=== PATIENT | male | born 1950 | race Caucasian/White ===

== ENCOUNTER 2020-08-10 09:01 | Outpatient (REF) | payer MEDICARE, OTHER, SELFPAY ==
--- NOTE | 2020-08-10 08:57 | CT_ITS ---
EXAMINATION: CT SINUS WITHOUT CONTRAST CLINICAL INFORMATION: Anosmia. COMPARISON: No relevant prior imaging. TECHNIQUE: [employer]ator images were obtained. A CT acquisition of the sinuses was performed without contrast. Data was reformatted into multiplanar images at the acquisition workstation. This CT examination was performed using dose optimization techniques as appropriate, variously including the following: *Automated exposure control *Adjustment of mA and/or kV according to patient size (this includes techniques or standardized protocols for targeted exams where dose is matched to indication/reason for exam; i.e. extremities or head) *Use of iterative reconstruction technique DLP: 101 mGy-cm FINDINGS: Maxillary sinuses are well aerated and the primary maxillary sinus ostia are patent. Uncinate processes are intact. No ostiomeatal unit dysfunction. Frontal sinuses are well-aerated and the frontal recesses are patent. The ethmoid air cells and sphenoid sinus are well aerated. Seen on sinus ostia are patent. No nasal septal deviation. Globes and extraocular muscles are symmetric. No abnormal retrobulbar mass or collection. Lamina papyracea and orbital floors are intact. Orbital apices are unremarkable. Limited visualization of intracranial compartment reveals no abnormal finding. Specifically no midline shift or hydrocephalus. No mastoid middle ear effusion. Temporal mandibular joints are symmetric. IMPRESSION: Normal maxillofacial CT scan. Specifically no active paranasal sinus disease. All of the paranasal sinus drainage pathways are patent. No nasal septal deviation.
== END 2020-08-10 09:02 | disposition home or self-care (01) ==
LOC: HO.CT 09:01
PROVIDERS: PCP Internal Medicine; Visit Provider Internal Medicine
DX: R43.0 Anosmia (principal)
CPT/HCPCS: 70486

== ENCOUNTER 2020-08-26 12:03 | Outpatient (REF) | payer MEDICARE, OTHER, SELFPAY ==
--- NOTE | 2020-08-26 12:11 | XR_ITS ---
EXAMINATION: XR CERVICAL SPINE CLINICAL INFORMATION: Neck pain COMPARISON: None TECHNIQUE: 3 views of the cervical spine were obtained. FINDINGS: Bone alignment is normal. No fracture or dislocation is seen. There is soft tissue ossification or calcification adjacent to the C7 spinous process, question related to old trauma. There is degenerative spondylosis at C5-C6 and C6-C7. There is disc space narrowing at C6-C7. Prevertebral soft tissues are normal. XR/XR cervical spine 3V IMPRESSION: Degenerative changes at C5-C6 and C6-C7.
== END 2020-08-26 12:04 | disposition home or self-care (01) ==
LOC: HO.XRAY 12:03
PROVIDERS: PCP Internal Medicine; Visit Provider Chiropractor
DX: M54.2 Cervicalgia (principal)
CPT/HCPCS: 72040

== ENCOUNTER 2020-12-27 11:58 | Outpatient (REF) | payer MEDICARE, OTHER, SELFPAY ==
[2020-12-27 13:14] LABS: Anion Gap 11 (12-20); Blood Urea Nitrogen 23 mg/dL (9-16); Calcium 9.7 mg/dL (8.4-10.2); Carbon Dioxide 30 mmol/L (22-29); Chloride 103 mmol/L (96-108); Estimated Glomerular Filt Rate > 60; Glucose Random 96 mg/dL (60-115); Potassium 4.6 mmol/L (3.3-5.1); Sodium 139 mmol/L (135-145)
== END 2020-12-27 11:59 | disposition home or self-care (01) ==
LOC: HO.LAB 11:58
PROVIDERS: PCP Internal Medicine; Visit Provider Internal Medicine
DX: Z13.9 Encounter for screening, unspecified (principal)
CPT/HCPCS: 36415; 80048

== ENCOUNTER 2020-12-30 10:30 | Outpatient (REF) | payer MEDICARE, OTHER, SELFPAY ==
--- NOTE | ~2020-12-30 | CT_ITS ---
EXAMINATION: CT CHEST WITH CONTRAST CLINICAL INFORMATION: Family history of thoracic aortic aneurysm COMPARISON: Previous chest CT scans most recent October 2018 TECHNIQUE: Multidetector volumetric CT imaging of the chest was obtained after the administration of 65 mL of Omnipaque 350 intravenous contrast without immediate adverse reactions. Axial MIP volume rendering provided. Sagittal and coronal reformatted images were obtained. This CT examination was performed using dose optimization techniques as appropriate, variously including the following: *Automated exposure control *Adjustment of mA and/or kV according to patient size (this includes techniques or standardized protocols for targeted exams where dose is matched to indication/reason for exam; i.e. extremities or head) *Use of iterative reconstruction technique DLP: 149 mGy-cm FINDINGS: LUNGS: There is linear scarring or subsegmental atelectasis at the left lung base. The lungs are otherwise clear. MEDIASTINUM: The thoracic aorta is normal in caliber. No aneurysm is seen. The ascending thoracic aorta measures 3.7 cm, aortic arch 2.5 cm and descending thoracic aorta 2.3 cm in diameter. The distal descending thoracic aorta is slightly tortuous. The great vessel origins are patent and normal in caliber. The thyroid gland is normal. There are no enlarged hilar or mediastinal lymph nodes. The heart does not appear enlarged. There is no pericardial effusion. The esophagus is unremarkable. PLEURA: There is no pleural effusion. No pleural mass or thickening. AXILLA: No lymphadenopathy. UPPER ABDOMEN: Unremarkable OSSEOUS STRUCTURES: There are mild degenerative changes of the spine. CT/CT chest w con IMPRESSION: Normal caliber thoracic aorta. No aneurysm is seen.
--- NOTE | ~2020-12-30 | XR_ITS ---
EXAMINATION: XR STERNOCLAVICULAR JOINTS CLINICAL INFORMATION: Pain. COMPARISON: None TECHNIQUE: AP and oblique views of the sternoclavicular joints. FINDINGS: Alignment of the sternoclavicular joints is normal and symmetric. The clavicle is intact. No fracture. Bones and soft tissues are normal. XR/XR sternoclavicular joint BI IMPRESSION: Normal sternoclavicular joints.
[2020-12-30] MEDS: iohexoL 350 MG/ML 75 ML INFUS..BTL IV (10:58)
== END 2020-12-30 10:31 | disposition home or self-care (01) ==
LOC: HO.CT 10:30
PROVIDERS: PCP Internal Medicine; Visit Provider Internal Medicine
DX: R07.89 Other chest pain (principal); Z82.49 Family history of ischemic heart disease and other diseases of the circulatory system
CPT/HCPCS: 71130; 71260; Q9967

== ENCOUNTER 2021-09-06 10:01 | Outpatient (REF) | payer MEDICARE, OTHER, SELFPAY ==
[2021-09-07 08:42] LABS: Lyme Blot 2.17 index
[2021-09-07 11:42] LABS: Lyme Abs Screen POSITIVE
[2021-09-08 13:50] LABS: 18 KD (IgG) Band NON-REACTIVE; 23 KD (IgG) Band NON-REACTIVE; 23 KD (IgM) Band NON-REACTIVE; 28 KD (IgG) Band NON-REACTIVE; 30 KD (IgG) Band NON-REACTIVE; 39 KD (IgM) Band NON-REACTIVE; 41 KD (IgM) Band NON-REACTIVE; 45 KD (IgG) Band NON-REACTIVE; 58 KD (IgG) Band NON-REACTIVE; 66 KD (IgG) Band NON-REACTIVE; 93 KD (IgG) Band NON-REACTIVE; Lyme IgG Blot Interp NEGATIVE (NEGATIVE); Lyme IgM Blot Interp NEGATIVE (NEGATIVE)
== END 2021-09-06 10:02 | disposition home or self-care (01) ==
LOC: HO.MANLDS 10:01
PROVIDERS: PCP Internal Medicine; Visit Provider Internal Medicine
DX: T14.8XXA Other injury of unspecified body region, initial encounter (principal); W57.XXXA Bitten or stung by nonvenomous insect and other nonvenomous arthropods, initial encounter
CPT/HCPCS: 36415; 86617; 86618

== ENCOUNTER 2022-01-24 09:29 | Outpatient (REF) | payer MEDICARE, OTHER, SELFPAY ==
[2022-01-24 11:08] LABS: Hematocrit 44.4 % (42.0-52.0); Mean Corpuscular HGB Conc 33.8 g/dl (31.0-36.0); Mean Corpuscular Hemoglobin 31.2 pg (27.0-33.0); Mean Corpuscular Volume 92.3 fL (80.0-98.0); Mean Platelet Volume 9.9 fL (9.4-12.4); Platelet Count 209 X10*3/uL (160-400); Red Blood Count 4.81 X10*6/uL (4.60-5.80); Red Cell Distribution Width 13.1 % (11.0-16.0); White Blood Count 5.8 X10*3/uL (4.8-10.8)
[2022-01-24 11:22] LABS: Alanine Aminotransferase 27 U/L (0-40); Alkaline Phosphatase 63 U/L (39-117); Anion Gap 8 (12-20); Aspartate Amino Transferase 28 U/L (5-37); Bilirubin Total 0.4 mg/dL (0.0-1.0); Blood Urea Nitrogen 24 mg/dL (9-16); Calcium 9.3 mg/dL (8.4-10.2); Carbon Dioxide 30 mmol/L (22-29); Chloride 102 mmol/L (96-108); Cholesterol 193 mg/dL; Estimated Glomerular Filt Rate > 60; Glucose Fasting 101 mg/dL (60-99); HDL Cholesterol 54 mg/dL; LDL Cholesterol Calculated 126 mg/dl; Potassium 4.2 mmol/L (3.3-5.1); Sodium 136 mmol/L (135-145); Total Protein 6.4 g/dL (6.5-8.0); Triglycerides 65 mg/dL
[2022-01-24 11:45] LABS: Prostate Specific Antigen 1.87 ng/mL (<0.05-4.0)
== END 2022-01-24 09:30 | disposition home or self-care (01) ==
LOC: HO.MANLDS 09:29
PROVIDERS: PCP Internal Medicine; Visit Provider Internal Medicine
DX: Z12.5 Encounter for screening for malignant neoplasm of prostate (principal); E78.5 Hyperlipidemia, unspecified
CPT/HCPCS: 36415; 80053; 80061; 84153; 85027

== ENCOUNTER 2022-01-25 10:53 | Outpatient (REF) | payer MEDICARE, OTHER, SELFPAY ==
--- NOTE | ~2022-01-25 | XR_ITS ---
EXAMINATION: XR CHEST CLINICAL INFORMATION: Chronic cough COMPARISON: CT performed 12/30/2020 TECHNIQUE: 2 views of the chest were obtained. FINDINGS: The lungs are well expanded. There is no focal consolidation, edema, or effusion. No pneumothorax. The cardiomediastinal silhouette is within normal limits. No acute osseous abnormality. XR/XR chest 2V IMPRESSION: Clear lungs.
== END 2022-01-25 10:54 | disposition home or self-care (01) ==
LOC: HO.XRAY 10:53
PROVIDERS: PCP Internal Medicine; Visit Provider Internal Medicine
DX: R05.3 Chronic cough (principal)
CPT/HCPCS: 71046

== ENCOUNTER 2023-02-20 09:43 | Outpatient (REF) | payer MEDICARE, OTHER, SELFPAY ==
[2023-02-20 11:14] LABS: Prostate Specific Antigen 1.68 ng/mL (<0.05-4.0)
== END 2023-02-20 09:44 | disposition home or self-care (01) ==
LOC: HO.LAB 09:43
PROVIDERS: PCP Internal Medicine; Visit Provider Physician Assistant
DX: N40.1 Benign prostatic hyperplasia with lower urinary tract symptoms (principal); Z12.5 Encounter for screening for malignant neoplasm of prostate
CPT/HCPCS: 36415; 84153

== ENCOUNTER 2023-04-05 10:00 | Outpatient (REF) | payer MEDICARE, OTHER, SELFPAY | END 2023-04-05 10:01 | disposition home or self-care (01) | LOC: HO.MANLDS 10:00 | PROVIDERS: Visit Provider Physician Assistant | DX: T14.8XXA Other injury of unspecified body region, initial encounter (principal); W57.XXXA Bitten or stung by nonvenomous insect and other nonvenomous arthropods, initial encounter; Y93.9 Activity, unspecified; Y92.9 Unspecified place or not applicable; Y99.9 Unspecified external cause status; Z20.2 Contact with and (suspected) exposure to infections with a predominantly sexual mode of transmission | CPT/HCPCS: 36415; 86617; 86618; 86666; 86753; 87798; 87801 ==

== ENCOUNTER 2023-05-06 10:54 | Outpatient (REF) | payer MEDICARE, OTHER, SELFPAY ==
[2023-05-08 21:48] LABS: Lyme Blot 1.12 index
[2023-05-10 13:08] LABS: Lyme Abs Screen POSITIVE
[2023-05-10 13:09] LABS: 18 KD (IgG) Band NON-REACTIVE; 23 KD (IgG) Band NON-REACTIVE; 23 KD (IgM) Band NON-REACTIVE; 28 KD (IgG) Band NON-REACTIVE; 30 KD (IgG) Band NON-REACTIVE; 39 KD (IgM) Band NON-REACTIVE; 39KD (IgG) Band REACTIVE; 41 KD (IgM) Band NON-REACTIVE; 41KD (IgG) Band NON-REACTIVE; 45 KD (IgG) Band NON-REACTIVE; 58 KD (IgG) Band NON-REACTIVE; 66 KD (IgG) Band NON-REACTIVE; 93 KD (IgG) Band NON-REACTIVE; Lyme IgG Blot Interp NEGATIVE (NEGATIVE); Lyme IgM Blot Interp NEGATIVE (NEGATIVE)
== END 2023-05-06 10:55 | disposition home or self-care (01) ==
LOC: HO.MANLDS 10:54
PROVIDERS: Visit Provider Physician Assistant
DX: T14.8XXA Other injury of unspecified body region, initial encounter (principal); W57.XXXA Bitten or stung by nonvenomous insect and other nonvenomous arthropods, initial encounter; Y93.9 Activity, unspecified; Y92.9 Unspecified place or not applicable; Y99.9 Unspecified external cause status
CPT/HCPCS: 36415; 86617; 86618

== ENCOUNTER → 2023-07-23 07:51 | Outpatient (REF) | payer MEDICARE, OTHER, SELFPAY ==
--- NOTE | ~2023-07-23 | NM_ITS ---
Lexiscan Myocardial perfusion study Indication: Abnormal stress test Technique: The patient was brought in for a Lexiscan perfusion study on 07/23/2023 and was injected 0.4 mg of Lexiscan intravenously. Within a minute of this injection 25 mCi of sestamibi was given intravenously. Images were obtained using the SPECT gamma camera interlaced with the gating device. Images were obtained in supine position. Resting perfusion study was performed on 07/24/2023. Patient was administered 25 mCi of sestamibi intravenously at rest. Images were then obtained in supine position. Images were processed with the software and compared side to side in short axis, horizontal long axis and vertical long axis views. Total DLP 83mGy-cm. Findings: Raw acquisition reviewed. The stress perfusion study showed diminished tracer uptake in the basal part of basal inferior wall. With CT attenuation correction, there is significant improvement suggestive of diaphragmatic attenuation artifact. The gated study shows normal LV systolic function with calculated LVEF of 67%. LV cavity is normal in size. The gated study shows normal wall thickening and contraction of segments. Resting study shows no significant perfusion abnormality. Gating at rest reveals normal wall motion with ejection fraction at 67%. The findings are consistent with no clear reversible or fixed perfusion defects. NM/NM tariq perf SPECT rest & str Impression: 1. Myocardial perfusion imaging study shows probably normal myocardial perfusion. 2. Gated LVEF is 57% during stress and rest. 3. Transient ischemic dilatation not present. EKG component of the test reported separately.
--- NOTE | 2023-07-23 07:55 | CA_ITS ---
Acquisition Time: 2023-07-23 08:03:07 Total Exercise Time: 00:02:00 Test Indications: Abnormal Treadmill Test Medications: NONE Protocol: LEXISCAN Max HR: 142 BPM 95% of Pred: 149 BPM Max BP: 118/072 mmHG Max Work Load: 1.6 METS Pharmacological stress test with Lexiscan injection while walking slowly on treadmill, without anginal symptoms, with isolated PVCs, with normotensive response to injection, with nondiagnositic EKGs. Aminophylline 75mg IVP given to reverse Lexiscan. Nuclear images pending. Test reviewed with Dr. Ortiz. Referred By: Doris Quinn Overread By: Kitty Post
== END ==
LOC: HO.CARD 07:51
PROVIDERS: PCP Internal Medicine; Visit Provider Physician Assistant
DX: R94.39 Abnormal result of other cardiovascular function study (principal)
CPT/HCPCS: 78452; 93017; A9500; J0280; J2785

== ENCOUNTER → 2023-07-23 07:55 | Outpatient (BNV) | payer MEDICARE, OTHER, SELFPAY | PROVIDERS: PCP Internal Medicine; Visit Provider Internal Medicine | DX: R94.39 Abnormal result of other cardiovascular function study (principal) | CPT/HCPCS: 78452; 93016; 93018 ==

== ENCOUNTER 2023-08-09 07:36 | Outpatient (REF) | payer MEDICARE, OTHER, SELFPAY ==
[2023-08-09 13:35] LABS: MANUAL DIFF FLAG NO
[2023-08-09 13:44] LABS: Basophils Percent Auto 0.6 % (0-2); Eosinophils Absolute Auto 0.1 X10*3/uL (0.0-0.4); Eosinophils Percent Auto 1.4 % (0-4); Hematocrit 46.8 % (42.0-52.0); Hemoglobin 15.7 g/dl (14.0-18.0); Imm Gran Abs Auto 0.01 X10*3/uL (0.00-0.03); Imm Gran Pct Auto 0.2 % (0.0-0.4); Lymphocytes Absolute Auto 1.2 X10*3/uL (1.2-4.9); Lymphocytes Percent Auto 23.7 % (20-40); Mean Corpuscular HGB Conc 33.5 g/dl (31.0-36.0); Mean Corpuscular Hemoglobin 30.5 pg (27.0-33.0); Mean Corpuscular Volume 90.9 fL (80.0-98.0); Mean Platelet Volume 10.7 fL (9.4-12.4); Monocytes Absolute Auto 0.5 X10*3/uL (0.1-1.2); Monocytes Percent Auto 10.9 % (2-11); Neutrophils Absolute Auto 3.1 x10*3/uL (2.0-8.3); Neutrophils Percent Auto 63.2 % (45-73); Platelet Count 187 X10*3/uL (160-400); Red Blood Count 5.15 X10*6/uL (4.60-5.80); Red Cell Distribution Width 12.5 % (11.0-16.0); White Blood Count 4.9 X10*3/uL (4.8-10.8)
[2023-08-09 14:29] LABS: Estimated Average Glucose 105 mg/dL; Hemoglobin A1c % 5.3 % (<6.0)
[2023-08-09 14:36] LABS: Prostate Specific Antigen 2.07 ng/mL (<0.05-4.0)
[2023-08-09 14:39] LABS: Alanine Aminotransferase 22 U/L (0-40); Albumin Level 4.1 g/dL (3.5-5.0); Alkaline Phosphatase 64 U/L (39-117); Anion Gap 14 (12-20); Aspartate Amino Transferase 29 U/L (5-37); Bilirubin Total 0.4 mg/dL (0.0-1.0); Blood Urea Nitrogen 23 mg/dL (9-16); Calcium 10.3 mg/dL (8.4-10.2); Carbon Dioxide 27 mmol/L (22-29); Chloride 105 mmol/L (96-108); Cholesterol 227 mg/dL (<200); Estimated Glomerular Filt Rate > 60; Glucose Random 92 mg/dL (60-115); HDL Cholesterol 65 mg/dL (>40); LDL Cholesterol Calculated 148 mg/dL (<100); Potassium 4.1 mmol/L (3.3-5.1); Sodium 142 mmol/L (135-145); Triglycerides 70 mg/dL (<150)
[2023-08-09 14:53] LABS: Vitamin D 25-OH Total 50.3 ng/mL (>30)
[2023-08-14 03:39] LABS: Lyme Blot 2.46 index
[2023-08-16 11:19] LABS: Lyme Abs Screen POSITIVE
[2023-08-16 15:43] LABS: 18 KD (IgG) Band NON-REACTIVE; 23 KD (IgG) Band NON-REACTIVE; 23 KD (IgM) Band NON-REACTIVE; 28 KD (IgG) Band NON-REACTIVE; 30 KD (IgG) Band NON-REACTIVE; 39 KD (IgM) Band NON-REACTIVE; 39KD (IgG) Band REACTIVE; 41 KD (IgM) Band NON-REACTIVE; 41KD (IgG) Band NON-REACTIVE; 45 KD (IgG) Band NON-REACTIVE; 58 KD (IgG) Band NON-REACTIVE; 66 KD (IgG) Band NON-REACTIVE; 93 KD (IgG) Band NON-REACTIVE; Lyme IgG Blot Interp NEGATIVE (NEGATIVE); Lyme IgM Blot Interp NEGATIVE (NEGATIVE)
== END 2023-08-09 07:37 | disposition home or self-care (01) ==
LOC: HO.MANLDS 07:36
PROVIDERS: Visit Provider Physician Assistant
DX: Z00.00 Encounter for general adult medical examination without abnormal findings (principal); Z12.5 Encounter for screening for malignant neoplasm of prostate; E78.2 Mixed hyperlipidemia; A69.29 Other conditions associated with Lyme disease
CPT/HCPCS: 36415; 80053; 80061; 82306; 83036; 84153; 85025; 86617; 86618

== ENCOUNTER 2023-11-01 07:38 | Outpatient (REF) | payer MEDICARE, OTHER, SELFPAY ==
[2023-11-01 13:41] LABS: MANUAL DIFF FLAG NO
[2023-11-01 13:55] LABS: Basophils Percent Auto 0.7 % (0-2); Eosinophils Absolute Auto 0.1 X10*3/uL (0.0-0.4); Eosinophils Percent Auto 1.5 % (0-4); Hematocrit 45.9 % (42.0-52.0); Hemoglobin 15.3 g/dl (14.0-18.0); Imm Gran Abs Auto 0.01 X10*3/uL (0.00-0.03); Imm Gran Pct Auto 0.2 % (0.0-0.4); Lymphocytes Absolute Auto 1.1 X10*3/uL (1.2-4.9); Lymphocytes Percent Auto 24.6 % (20-40); Mean Corpuscular HGB Conc 33.3 g/dl (31.0-36.0); Mean Corpuscular Hemoglobin 30.7 pg (27.0-33.0); Monocytes Absolute Auto 0.4 X10*3/uL (0.1-1.2); Monocytes Percent Auto 9.4 % (2-11); Neutrophils Absolute Auto 2.9 x10*3/uL (2.0-8.3); Neutrophils Percent Auto 63.6 % (45-73); Platelet Count 193 X10*3/uL (160-400); Red Blood Count 4.99 X10*6/uL (4.60-5.80); Red Cell Distribution Width 12.8 % (11.0-16.0); White Blood Count 4.6 X10*3/uL (4.8-10.8)
[2023-11-01 14:04] LABS: Estimated Average Glucose 111 mg/dL; Hemoglobin A1c % 5.5 % (<6.0)
[2023-11-01 14:20] LABS: Alanine Aminotransferase 26 U/L (0-40); Alkaline Phosphatase 62 U/L (39-117); Anion Gap 10 (12-20); Aspartate Amino Transferase 34 U/L (5-37); Bilirubin Total 0.4 mg/dL (0.0-1.0); Blood Urea Nitrogen 26 mg/dL (9-16); Calcium 9.6 mg/dL (8.4-10.2); Carbon Dioxide 28 mmol/L (22-29); Chloride 105 mmol/L (96-108); Cholesterol 220 mg/dL (<200); Estimated Glomerular Filt Rate > 60; Glucose Random 92 mg/dL (60-115); HDL Cholesterol 57 mg/dL (>40); LDL Cholesterol Calculated 149 mg/dL (<100); Potassium 4.1 mmol/L (3.3-5.1); Sodium 139 mmol/L (135-145); Total Protein 6.7 g/dL (6.5-8.0); Triglycerides 73 mg/dL (<150); Vitamin D 25-OH Total 53.2 ng/mL (>30)
[2023-11-05 03:24] LABS: Lyme Blot 1.95 index
[2023-11-07 09:29] LABS: Lyme Abs Screen POSITIVE
[2023-11-07 21:44] LABS: 18 KD (IgG) Band NON-REACTIVE; 23 KD (IgG) Band NON-REACTIVE; 23 KD (IgM) Band NON-REACTIVE; 28 KD (IgG) Band NON-REACTIVE; 30 KD (IgG) Band NON-REACTIVE; 39 KD (IgM) Band NON-REACTIVE; 39KD (IgG) Band REACTIVE; 41 KD (IgM) Band NON-REACTIVE; 41KD (IgG) Band NON-REACTIVE; 45 KD (IgG) Band NON-REACTIVE; 58 KD (IgG) Band NON-REACTIVE; 66 KD (IgG) Band NON-REACTIVE; 93 KD (IgG) Band NON-REACTIVE; Lyme IgG Blot Interp NEGATIVE (NEGATIVE); Lyme IgM Blot Interp NEGATIVE (NEGATIVE)
== END 2023-11-01 07:39 | disposition home or self-care (01) ==
LOC: HO.MANLDS 07:38
PROVIDERS: Visit Provider Physician Assistant
DX: Z00.00 Encounter for general adult medical examination without abnormal findings (principal); Z12.5 Encounter for screening for malignant neoplasm of prostate; E78.2 Mixed hyperlipidemia; A69.29 Other conditions associated with Lyme disease
CPT/HCPCS: 36415; 80053; 80061; 82306; 83036; 84153; 85025; 86617; 86618

== ENCOUNTER 2024-03-16 09:16 | Outpatient (REF) | payer MEDICARE, OTHER, SELFPAY ==
[2024-03-16 14:32] LABS: Prostate Specific Antigen 2.05 ng/mL (<0.05-4.0)
== END 2024-03-16 09:17 | disposition home or self-care (01) ==
LOC: HO.MANLDS 09:16
PROVIDERS: Visit Provider Internal Medicine
DX: N40.0 Benign prostatic hyperplasia without lower urinary tract symptoms (principal); Z12.5 Encounter for screening for malignant neoplasm of prostate
CPT/HCPCS: 36415; 84153

== ENCOUNTER 2024-04-21 07:31 | Outpatient (REF) | payer MEDICARE, OTHER, SELFPAY ==
[2024-04-21 13:58] LABS: Cholesterol 211 mg/dL (<200); HDL Cholesterol 58 mg/dL (>40); LDL Cholesterol Calculated 136 mg/dL (<100); Triglycerides 89 mg/dL (<150)
[2024-04-23 08:56] LABS: Lyme Blot 1.82 index
[2024-04-23 12:16] LABS: Lyme Abs Screen POSITIVE
[2024-04-24 16:38] LABS: 18 KD (IgG) Band NON-REACTIVE; 23 KD (IgG) Band NON-REACTIVE; 23 KD (IgM) Band NON-REACTIVE; 28 KD (IgG) Band NON-REACTIVE; 30 KD (IgG) Band NON-REACTIVE; 39 KD (IgM) Band NON-REACTIVE; 39KD (IgG) Band NON-REACTIVE; 41 KD (IgM) Band NON-REACTIVE; 41KD (IgG) Band NON-REACTIVE; 45 KD (IgG) Band NON-REACTIVE; 58 KD (IgG) Band NON-REACTIVE; 66 KD (IgG) Band NON-REACTIVE; 93 KD (IgG) Band NON-REACTIVE; Lyme IgG Blot Interp NEGATIVE (NEGATIVE); Lyme IgM Blot Interp NEGATIVE (NEGATIVE)
== END 2024-04-21 07:32 | disposition home or self-care (01) ==
LOC: HO.MANLDS 07:31
PROVIDERS: Visit Provider Internal Medicine
DX: A69.29 Other conditions associated with Lyme disease (principal); R07.89 Other chest pain
CPT/HCPCS: 36415; 80061; 86617; 86618

== ENCOUNTER 2024-07-27 16:50 | Outpatient (REF) | payer MEDICARE, OTHER, SELFPAY ==
--- NOTE | ~2024-07-27 | CT_ITS ---
EXAMINATION: CT CHEST WITHOUT CONTRAST CLINICAL INFORMATION: Follow-up for pulmonary nodules. COMPARISON: CT chest 12/30/2020, 11/20/2018. TECHNIQUE: Multidetector volumetric CT imaging of the chest was done. Axial MIP volume rendering provided. Sagittal and coronal reformatted images were obtained. This CT examination was performed using dose optimization techniques as appropriate, variously including the following: *Automated exposure control *Adjustment of mA and/or kV according to patient size (this includes techniques or standardized protocols for targeted exams where dose is matched to indication/reason for exam; i.e. extremities or head) *Use of iterative reconstruction technique DLP: 183 mGy-cm FINDINGS: PULMONARY NODULES: -There are a few scattered 2-3 mm both calcified and noncalcified nodules, all stable. -There are stable fissural nodules that aren't consistent with normal intrapulmonary lymph nodes. -No new or enlarging nodule identified. -Previously seen 5 mm groundglass nodule in the right middle lobe is unchanged with no solid component. (Series 7, image 545). LUNGS: -Lungs demonstrate similar bilateral basilar scarring, most notable posterior left lower lobe. -Minor fibrosis again noted in the medial right lower lobe abutting spinal osteophytes. -Lungs otherwise clear. No evidence of pneumonic consolidation or abnormal opacity. -No evidence of interstitial lung disease. -No pleural effusion or mass. No pneumothorax. -Large airways are patent. Small airways appear normal without thickening or bronchiectasis. MEDIASTINUM: -Normal thyroid. -Ascending aorta again noted to be borderline aneurysmal at 4.0 cm, previously 3.8 cm when measured similarly (although this is a non-gated examination). -Remainder of the aorta is normal. There is trace atheromatous calcification. -Main pulmonary artery is normal. -There is no lymphadenopathy in the mediastinum or hilum. -Heart size is normal. There is no pericardial effusion. -Again noted is a diffusely patulous esophagus. CORONARY ARTERY CALCIFICATION: -Mild LAD calcification. AXILLA/CHEST WALL: -No lymphadenopathy. No masses. UPPER ABDOMEN: -Normal in appearance. OSSEOUS STRUCTURES: - No suspicious lytic or blastic bone lesion. Mild spinal degenerative changes present. -There are a few stable bone islands in the ribs and spine. CT/CT chest wo IV con IMPRESSION: 1. Borderline aneurysmal dilatation descending aorta, currently 4.0 cm, previously 3.8 cm when measured similarly. Please note this is a non-gated study. 2. A few stable scattered solid and calcified pulmonary nodules, all benign. No new or enlarging nodule. 3. Stable groundglass nodule measuring 6 mm in the right middle lobe. No solid component. One-year follow-up recommended in a high-risk patient. 4. Minor scarring in the bilateral lung bases. Lungs otherwise clear without evidence of active disease. 5. Diffusely patulous esophagus again noted. Fleischner guidelines were followed. Electronically signed by: Josafat Post MD 09/04/2024 04:15 PM [facility]
== END 2024-07-27 16:51 | disposition home or self-care (01) ==
LOC: HO.CT 16:50
PROVIDERS: PCP Internal Medicine; Visit Provider Physician Assistant
DX: R91.1 Solitary pulmonary nodule (principal)
CPT/HCPCS: 71250

== ENCOUNTER → 2024-07-27 16:52 | Outpatient (BNV) | payer MEDICARE, OTHER, SELFPAY | PROVIDERS: PCP Internal Medicine; Visit Provider Radiology Diagnostic Radiology | DX: R91.8 Other nonspecific abnormal finding of lung field (principal) | CPT/HCPCS: 71250 ==

== ENCOUNTER 2025-02-16 08:19 | Outpatient (REF) | payer MEDICARE, OTHER, SELFPAY ==
--- OUTSIDE RECORDS SUMMARY | 2025-02-16 08:38 | XMS_ITS | Clinical Summary ---
Author Organization [facility] Address [address] [place] [address] Care Team Providers Care Show Host Or Hostess Name Role Phone Unavailable Primary Care Provider Unavailabl e Social History Tobacco Use Types Packs/Day Years Used Date Smoking Tobacco: Never Assessed Sex and Gender Information Value Date Recorded Sex Assigned at Not on file Legal Sex Male 8:26 AM EDT Gender Identity Not on file Sexual Orientation Not on file Plan of Treatment Health Maintenance Due Date Last Done Comments Hepatitis C Screening 1950 DTaP/Tdap/Td (1 - Tdap) 01/30/1970 Pneumococcal 50+ years (1 of 1 - PCV) 01/30/2002 Zoster (Shingrix) (1 of 2) 01/30/2002 COVID-19 Vaccine ( - 2023-2 5 season) 2024 Influenza (#1) 2024 RSV (1 - 1-dose 75+ series) 01/30/2027 Abdominal Aorta Imaging Discontinued HPV Vaccine Aged Out No longer eligi ble based on patient's age to complete this topic Hep A Aged Out No longer eligi ble based on patient's age to complete this topic Hep B Aged Out No longer eligi ble based on patient's age to complete this topic Hib Aged Out No longer eligi ble based on patient's age to complete this topic Meningococcal ACWY Aged Out No longer eligible based on patient's age to complete this topic Zoster (Zostavax) Discontinued
--- OUTSIDE RECORDS SUMMARY | 2025-02-16 08:38 | XMS_ITS | Data Portability ---
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 MUST MEET 2 OUT OF 3 ELEMENTS: PROBLEMS, DATA OR RISK ELEMENT 1: PROBLEMS ADDRESSED 1 OR MORE CHRONIC ILLNESS WITH EXACERBATION OR 2 OR MORE STABLE CHRONIC ILLNESSES OR 1 UNDIAGNOSED NEW PROBLEM OR 1 ACUTE ILLNESS W/SYMPTOMS OR 1 ACUTE COMPLICATED INJURY ELEMENT 2: DATA MUST MEET 1 OF 3 CATEGORIES CATEGORY 1: REVIEW OF PRIOR EXTERNAL NOTES, REVIEW OF RESULTS, ORDERING OF EACH TEST, ASSESSMENT REQUIRING INDEPENDENT HISTORIAN OR CATEGORY 2: INDEPENDENT INTERPRETATION OF TESTS BY ANOTHER PHYSICIAN OR SPECIALIST OR CATEGORY 3: DISCUSSION OF MGT OR TEST INTERPRETATION W/EXTERNAL PHYSICIAN OR SPECIALIST ELEMENT 3: RISK RISK OF COMPLICATIONS AND/OR MORBIDITY OR MORTALITY OF PATIENT MANAGEMENT PROVIDER MUST THOROUGHLY DOCUMENT EACH ELEMENT THAT IS COVERED Not available 01/19/2022 11:43:09 Plan of Treatment Reminders Order Date Submit Date Provider Last Modified By Organization Details Last Modified Time Details Appointments None recorded. Lab lipid panel, blood 2024 025 [facility], [address] [place] [address], [id number], 5 16:17:43 CMP, serum or plasma 2024 025 [facility], [address] [place] [address], [address], 5 16:17:43 lyme disease igg+igm, serum, reflex western blot 2022 023 [facility], [address] [place] [address], [address], 3 13:05:08 CBC w/ auto diff 2022 023 [facility], [address] [place] [address], [address], 3 08:23:43 lipid panel, blood 2022 023 [facility], [address] [place] [address], [address], 3 08:23:43 PSA, serum or plasma 2022 023 [facility], [address] [place] [address], [address], 3 16:20:43 hemoglobin A1c, QN, blood 2022 023 [facility], [address] [place] [address], [address], 3 16:20:43 vitamin D, 25-hydroxy , total, serum 2022 023 [facility], [address] [place] [address], [address], 3 16:20:43 lipid panel, serum 2022 023 [facility], [address] [place] [address], [address], 3 16:20:44 CMP, serum or plasma 2022 023 [facility], [address] [place] [address], [address], 3 08:23:42 lipid panel, serum 2021 022 [facility], [address] [place] [address], [address], 2 11:25:32 CMP, serum or plasma 2021 [facility], [address] [place] [address], [address], 2 11:25:32 CBC 2021 [facility], [address] [place] [address], [address], 2 11:25:32 PSA, serum or plasma 2021 [facility], [address] [place] [address], [address], 08:46:29 Referral ophthalmol ogist referral 2021 [email or web address] 10 Rodrigue Lugo II, MD, [address] [place] [address], [address], 16:18:27 Procedures None recorded. Surgeries None recorded. Imaging US, abdomen, limited 2024 025 [facility], [address] [place] [address], [address], 5 09:13:11 XR, chest, 2 view 2021 [facility], [address] [place] [address], [address], 2 11:22:47 Medication Orders sildenafil 100 mg tablet 2023 024 [email or web address] Not available 4 14:30:29 benzonatat e 200 mg capsule 2021 [email or web address] [id number], [address] [place] [address], [id number], 5 15:40:28 Patient TargetsNo targets recorded. Patient InstructionsNo instructions recorded. Reason for Referral Lead Setter Referral for Reduced visual acuity Referring Physician: Isaiah Sherwood, Internal Medicine, Encounter Date: 01/19/2022 Results Created Date Observation Date Name Description Value Unit Range Abnormal Flag Note LastModifiedBy Organization Detail LastModifiedTime 01/30/20 22 01/25/2022 XR, chest , 2 view No observ ation record ed. [facility] [address] [place], [address], 01/29/2022 11:46:50 07/01/20 23 06/27/2023 exerc ise stres s test No observ ation record ed. [facility] [address], [place], [address], 07/03/2023 09:23:34 07/24/20 23 07/23/2023 nucle ar stres s test No observ ation record ed. [email or web address] [facility] (Medical Records) [address] [place], [address], 07/26/2023 09:12:06 09/02/20 23 07/23/2023 nucle ar stres s test No observ ation record ed. [email or web address] [facility] (Medical Records) [address] [place], [address], 09/02/2023 12:19:19 09/04/20 24 07/27/2024 CT, chest , w/o contr ast No observ ation record ed. [email or web address] [facility] (Medical Records) [address] [place], [address], 09/08/2024 15:53:22 10/16/20 24 10/16/2024 CT, heart , w/o contr ast, w/ coron tres calci um score No observ ation record ed. [facility] [address] [facility] [address], [place], [address], 11/06/2024 11:55:16 Result Notes None recorded. Problems Name Problem SNOMED Code Status Onset Date Resolution Date Notes Provider Name and Address Organization Details Recorded Time Chronic cough 62760769 Active 2017 Not Available [facility] 2 12:15:19 Lyme disease 63573627 Active 2022 ROGELIO BONDS [address] [place] [address], [address], [facility] 3 12:24:46 Atypical chest pain 731672580 Active 2022 Isaiah Sherwood DO [address] [place] [address], [address], [facility] 3 21:50:17 Cardiovasc ular stress test abnormal 077662025 Active 2022 Isaiah Sherwood DO [address] [place] [address], [address], [facility] 3 22:57:23 Loose stool 023008394 Active 2023 Isaiah Sherwood DO [address] [place] [address], [address], [facility] 4 10:19:08 Nodule of lung 323460921 Active 2023 ROGELIO BONDS [address] [place] [address], [address], [facility] 4 15:41:53 Lipoma of groin 036135700 Active 2023 ROGELIO BONDS [address] [place] [address], [address], [facility] 4 14:29:25 Erectile dysfunctio n 768974903 Active 2023 ROGELIO BONDS [address] [place] [address], [address], [facility] 4 14:30:06 Aneurysm of ascending aorta 133405415 Active 2023 Isaiah Sherwood DO [address] [place], [address], [facility] 4 21:01:08 Pneumonia 450392844 Active 2024 ROGELIO BONDS [address] [place], [address], [facility] 5 12:57:00 Hyperchole sterolemia 63888403 Active 2024 ROGELIO BONDS [address] [place], [address], [facility] 5 16:11:16 Ataxia 50519754 Active 2017 Not Available [facility] 2 12:15:19 Benign polyp of colon 518295235 Active 2017 Not Available [facility] 2 12:15:19 Multiple skin tags 465362830 Active 2017 Not Available [facility] 2 12:15:19 Ganglion cyst Active 2017 Not Available [facility] 2 12:15:19 Hyperlipid emia 92978907 Active 2017 Not Available [facility] 2 12:15:19 Nocturia 533900446 Active 2017 Not Available [facility] 2 12:15:19 Benign prostatic hyperplasi a 868339667 Active 2017 Not Available [facility] 2 12:15:19 Osteoarthr itis 264403851 Active 2017 CS LS Not Available [facility] 2 12:15:19 Peripheral nerve disease 115755058 Active 2017 Not Available [facility] 2 12:15:19 Disorder of the larynx 73206837 Active 2017 Not Available [facility] 2 12:15:19 Gastroesop hageal reflux disease 811021110 Active 2017 Not Available [facility] 2 12:15:19 Problem Notes None recorded. Procedures Surgical History None recorded. Imaging Results Imaging Date Name Status LastModified by [facility] Details LastModified Time 01/25/2022 XR, chest, 2 view completed [facility] [address] [place], [address], 01/29/2022 11:46:50 06/27/2023 exercise stress test completed [facility] [address] [facility] [place], [address], 07/03/2023 09:23:34 07/23/2023 nuclear stress test completed [email or web address] [facility] (Medical Records) [address] [place], [address], 07/26/2023 09:12:06 07/23/2023 nuclear stress test completed [email or web address] [facility] (Medical Records) [address] [place], [address], 09/02/2023 12:19:19 07/27/2024 CT, chest, w/o contrast completed [email or web address] [facility] (Medical Records) [address] [place], [address], 09/08/2024 15:53:22 10/16/2024 CT, heart, w/o contrast, w/ coronary calcium score completed [facility] [address] [facility] [address], [place], [address], 11/06/2024 11:55:16 Procedure Notes None recorded. Medical Equipment None Reported. Allergies No known drug allergies Medications Name Sig Start Date Stop Date Status Note LastModified by Organization Details LastModified Time prednisone 10 mg tablet 01/25 completed Not Available Not Available Not Available doxycycline hyclate 100 mg capsule TAKE 1 CAPSULE BY MOUTH TWICE DAILY 01/19 completed Not Available Not Available Not Available benzonatate 200 mg capsule TAKE 1 CAPSULE BY MOUTH THREE TIMES DAILY FOR 14 DAYS NEEDED 01/25 completed Not Available Not Available Not Available omeprazole 40 mg capsule,del ayed release Take 1 capsule every day by oral route. 07/25 completed Not Available Not Available Not Available sildenafil 100 mg tablet TAKE 1 TABLET BY MOUTH ONCE DAILY active Not Available Not Available No t Available ketorolac 0.5 % eye drops INSTILL 1 DROP INTO THE LEFT EYE FOUR TIMES DAILY 05/15 completed Not Available Not Available Not Available prednisolon e acetate 1 % eye drops,suspe nsion SHAKE LIQUID AND INSTILL 1 DROP IN LEFT EYE FOUR TIMES DAILY FOR 1 WEEK DIRECTED 07/29 completed Not Available Not Available Not Available benzonatate 100 mg capsule TAKE 1 TO 2 CAPSULES BY MOUTH THREE TIMES DAILY FOR 14 DAYS NEEDED 07/29 completed Not Available Not Available Not Available pantoprazol e 40 mg tablet,nila yed release Take 1 tablet every day by oral route for 30 days. 07/25 completed Not Available Not Available Not Available zafirlukast 20 mg tablet 07/25 completed Not Available Not Available Not Available ipratropium bromide 42 mcg (0.06 %) nasal spray 07/25 completed Not Available Not Available Not Available fluticasone propionate 50 mcg/actuati on nasal spray,suspe nsion 07/25 completed Not Available Not Available Not Available doxycycline hyclate 100 mg tablet TAKE 1 TABLET BY MOUTH TWICE DAILY FOR 21 DAYS 06/01 completed Not Available Not Available Not Available amoxicillin 875 mg-potassiu m clavulanate 125 mg tablet TAKE 1 TABLET BY MOUTH EVERY 12 HOURS FOR 10 DAYS 01/25 completed Not Available Not Available Not Available Restasis 0.05 % eye drops in a dropperette INSTILL 1 DROP INTO BOTH EYES TWICE DAILY FOR 90 DAYS 05/15 completed Not Available Not Available Not Available Prolensa 0.07 % eye drops 05/15 completed Not Available Not Available Not Available Vitals Date Recorded Body height Body mass index (BMI) Body weight Heart rate Oxygen saturation Oxygen saturation in Arterial blood by Pulse oximetry Systolic blood pressure Diastolic blood pressure Provider Name and Address Organization Details Last Updated DateTime 2 182.88 cm 25.2 kg/m2 21975.7 4 g 70 /min 94 % 94 % 118 mm[Hg] 76 mm[Hg] Isaiah Sherwood, DO [address] [place], [address] [place] [address] Internal Medicine 2 11:17:09 Date Recorded Body height Body mass index (BMI) Body weight Heart rate Oxygen saturation Oxygen saturation in Arterial blood by Pulse oximetry Systolic blood pressure Diastolic blood pressure Provider Name and Address Organization Details Last Updated DateTime 3 182.88 cm 24.2 kg/m2 44012.6 g 77 /min 97 % 97 % 118 mm[Hg] 64 mm[Hg] Alicia Cooper [facility] 3 15:53:47 Date Recorded Body height Body mass index (BMI) Body weight Heart rate Oxygen saturation Oxygen saturation in Arterial blood by Pulse oximetry Systolic blood pressure Diastolic blood pressure Provider Name and Address Organization Details Last Updated DateTime 4 182.88 cm 24.1 kg/m2 44338.4 4 g 86 /min 97 % 97 % 112 mm[Hg] 78 mm[Hg] Aparna Neal [facility] Internal [facility] 4 10:06:02 Date Recorded Body height Provider Name an d Address Organization Details Last Updated DateTime 09/04/2024 182.88 cm Aparnabashir Neal [facility] 09/04/2024 14:14:06 Date Recorded Body height Body mass index (BMI) Body weight Heart rate Oxygen saturation Oxygen saturation in Arterial blood by Pulse oximetry Systolic blood pressure Diastolic blood pressure Provider Name and Address Organization Details Last Updated DateTime 5 182.88 cm 24.4 kg/m2 95264.6 3 g 84 /min 98 % 98 % 120 mm[Hg] 80 mm[Hg] Leonila López [facility] Internal [facility] 5 15:41:46 Social History Question Answer Notes LastModified by Organizat ion Details LastModified Time Tobacco Smoking Status Never Smoker Not Available [facility] 08/30/2020 03:36:24 What Was The Date Of Your Most Recent Tobacco Screening? 01/25/2025 [email or web address] Information not available 01/25/2025 Sex: Unknown Functional Status None recorded. Mental Status None recorded. Family History Nothing Reported. Medical History No medical history recorded. Immunizations Vaccine Type Date Status Note Provider Nam e and Address Organization Details Recorded Time zoster recombinant 2 completed Not Available [facility] 07/17/2023 10:06:32 zoster recombinant 2 completed Not Available [facility] 07/17/2023 10:06:32 Past Encounters Encounter ID Performer Location Encounter Start Date Encounter Closed Date Diagnosis/Indication Diagnosis SNOMED-CT Code Diagnosis ICD10 Code Diagnosis Note [id number] Isaiah Sherwood DO [facility] [address] [facility],[place] [address] 02/28/2018 10:20:13 02/28/2018 16:26:55 Hyperlipidemia 82810729 E78.5 cont current tx watch diet and will rechk lab next visit Gastroesop hageal reflux disease 392428701 K21.9 increase dose of omep 40mg Cough 65286715 R05 from chronic laryngeal reflux will increase dose to 40mg as this is appropriat e for laryngeal reflux [id number] Isaiah Sherwood DO [facility] [address] [facility],[place] [address] 07/18/2018 09:46:32 07/18/2018 13:46:46 Osteoarthritis 309072902 M19.90 having usual symptoms of arthralgia nothing out of the ordinary Hyperlipidemia 39047536 E78.5 cont current tx watch diet and will rechk lab next visit Gastroesop hageal reflux disease 392585201 K21.9 increase dose of omep 40mg Adult heal th examination 171104686 Z00.00 Screening for cardiovascular system disease 038367554 Z13.6 Screening for malignant neoplasm of colon 798302355 Z12.11 needs one in next 5 years had it 3 years ago Chronic cough 86172546 R [address] haque has had chronic cough for years [id number] Isaiah Sherwood DO [facility] [address] [facility],[place] [address] 07/25/2018 10:10:27 07/25/2018 10:57:37 Hyperlipidemia 77060911 E78.5 cont current tx watch diet and recent lab is actuallly very good and without issue Chronic cough 16411679 R 05 dr haqueto see for chronic cough for years [id number] Isaiah Sherwood DO [facility] [address] [facility],[place] [address] 06/05/2019 13:42:04 06/05/2019 14:17:53 Hyperlipidemia 47954141 E78.5 cont current tx watch diet and recent lab is actuallly very good and without issue Peripheral nerve disease 515054388 G64 need to have his notes as i have no info [id number] Isaiah Sherwood [facility] Internal [facility] [address] [facility], [place] [address] 07/25/2020 10:16:03 07/25/2020 11:09:47 Ganglion cyst of right knee 7221509047 83901 M67.461 will xray the knee first as it does not appear to be a painful issue now Unintentio nal weight loss 079385116 R63.4 but feels good no other symptomato logy or constituti onal signs Family his tory of Cardiovascular disease 283116241 Z82.49 will screen him for disease given family hx Complainin g of - anosmia 025111971 R43.0 [id number] ROGELIO BONDS [facility] [address] [place] [address], [place] [address] 11/23/2020 08:18:01 11/23/2020 10:42:47 Pre-surgery evaluation 262287943 Z01.818 based on limited exam conducted via telehealth and evaluation done with patient asking about physical and mental fitness, the patient is cleared for surgery [id number] Isaiah Sherwood [facility] Internal [address], [address] [facility] [place] [address] 12/20/2020 09:28:34 12/20/2020 11:12:04 Sternoclavicular joint pain 845926335 R07.89 will start with xrays told pt to avoid all activity stressing this area pt reluctant to stop.... Family his tory of aneurysm of thoracic aorta 662131271 Z82.49 [id number] Isaiah Sherwood [facility] Internal Medicine [address] [facility],[place] [address] 01/19/2022 11:12:04 01/19/2022 15:10:51 Hyperlipidemia 75067398 E78.5 cont current tx watch diet and recent lab is actuallly very good and without issue Gastroesop hageal reflux disease 940266545 K21.9 he is asymptomat ic and except for the cough he has been ok Chronic cough 81800928 R 05.3 he has been through a major w/u including consults and ct and xr and ba eduardo moss seen virtualization engineer, pulmonolog ist, ENT, GI, and none can figure out why he is coughinghe relates he does NOT cough at night and not in the am but as day goes on it gets worsewe will try tessalonbu t we will get cxr Ganglion c yst of right hand 8794735282 41867 M67.441 we will treat conserv unless it gets worse Reduced visual acuity 13 969229 H54.7 [id number] ROGELIO BONDS [facility] Internal Medicine [address] [facility],[place] [address] 07/29/2023 15:45:03 07/29/2023 16:47:46 Atypical chest pain 386658963 R07.89 resolved Hyperlipidemia 35310100 E78.2 would like to recheck lab work Lyme disease 90140926 A6 9.29 will recheck levels Adult heal th examination 805544798 Z00.00 will set up with routine lab work [id number] Isaiah Sherwood DO [facility] Internal [facility] [address] [facility],[place] [address] 05/15/2024 09:58:41 05/15/2024 10:25:51 Active or passive immunization 725109158 Z23 utd Adult heal th examination 230402973 Z00.00 doing well no major issuesexer cises daily and is vigoroushe is in fantastic shape Depression screening 171 529673 Z13.31 SCREENING NEGATIVE Loose stool 897411208 R1 9.5 since on doxy this has completely cleared [id number] ROGELIO BONDS [facility] [address] [facility],[place] [address] 09/04/2024 14:10:24 09/04/2024 15:06:51 Lipoma of groin 265715975 D17.20 if it changes, recommende d USfor now patient declines US currently, will let me know Erectile dysfunction 860 376099 F52.21 will set up for patient, will try through [facility] or [facility] Rxgiven script [id number] ROGELIO BONDS [facility] [address] [facility] [address],[place] [address] 01/25/2025 15:28:57 01/25/2025 16:25:23 Lipoma of groin 349923349 D17.20 agreed to US at this time Hypercholesterolemia 136 53728 E78.00 rechk Health Concerns Section Related Observation LastModified by Organization Detai ls LastModified Time None Recorded Concern Status LastModified by Organization Details LastModified Time None Recorded Advance Directives Directive None Recorded Payers Encounter Date Sequence Insurance Name Policy Number Policy Bowen Covered Member ID Bowen Member ID Guarantor Name 01/19/2022 1 MEDICARE B-[place]: [employer] Naveed Rios [id number] Naveed Rios 01/19/2022 2 COMMONWEALTH INDEMNITY PLAN - [employer] [id number] 2 Naveed Rios [id number] Naveed Rios 07/29/2023 1 MEDICARE B-[place]: [employer] aNveed Rios [id number] Naveed Rios 07/29/2023 2 COMMONWEALTH INDEMNITY PLAN - [employer] [id number] 2 Naveed Rios [id number] Naveed Rios 05/15/2024 1 MEDICARE B-[place]: [employer] Naveed Rios [id number] Naveed Rios 05/15/2024 2 COMMONWE[employer] INDEMNITY PLAN - [employer] [id number] 2 Naveed Rios [id number] Naveed Rios 09/04/2024 1 MEDICARE B-[place]: [employer] Naveed Rios [id number] Naveed Rios 09/04/2024 2 COMMONWEALTH INDEMNITY PLAN - [employer] [id number] 2 Naveed Rios [id number] Naveed Rios 01/25/2025 1 MEDICARE B-[place]: [employer] Naveed Rios [id number] Naveed Rios 01/25/2025 2 COMMONWE[employer] INDEMNITY PLAN - [employer] [id number] 2 Naveed Rios [id number] Naveed Rios Notes Date Note Type Note Provider Name a nd Address Organization Details Recorded Time 2 text/html here for rechk and states doing good relates that he still has cough and had seen dr gudino has a cough and is very irritatingdespite the allergy meds and gerd meds remembering that when seen by ENT told him he made excessive amounts of mucous in the vocal cord areahas been on mucinexhe has undergone numerous workups and consults and nobody can determine why Isaiah Sherwood, DO [address] [place], [address], [facility] 01/19/2022 11:50:32 3 text/html fu stress test both his echo, stress test and nuclear stress test were all wnlnothing showing ischemic changes, significant valvular def EF is excellentand overall the tests showed a very healthy heart patient doing wellsymptoms resolved with decreasing his exercise level and then taking a break will set up with routine lab work ROGELIO BONDS [address] [place] [address], [address], [facility] 07/29/2023 16:31:10 4 text/html Annual WellnessReported bypatient.Diet and Nutrition:healthy diet Fracture Risk:no history of fractures; no recent explained fracture; no sudden unexplained fractures; no previous musculoskeletal injuries Physical Activity:exercises on a regular basis; recent increase in physical activity; good physical condition Additional Lifestyle Factors:no tobacco use; no alcohol intake; stopped drinking alcohol Depression Risk:never feels sad, empty, or tearful; no loss of interest in activities; no significant changes in weight; no sleep disturbances or insomnia; no agitation; no loss of energy; no feelings of worthlessness or guilt; no thoughts of suicide; no history of depression; no history of mood disorders Hearing:no loss of hearing Vision:no vision problems here for rechk and is doing wellhas had loose stool for the past 6 monthsrelates after he Isaiah Sherwood, [address] [place], [address], [facility] 05/15/2024 10:24:25 4 text/html c/o lump on the groin the patient reports he noticed a lump on the grointhe patient reports that it is on the left side around the groinwife was concerned since she was the one that noticed it palpation and exam shows about 3 cm ovoid lump, soft to the tissue, not adhered to the wallno pain or swelling, no other concerning symptoms no fever, no chills, no urinary symptoms wants to the try the sildenafil which has worked prior for him declines US at this time, but will monitor for now, will call if it changes ROGELIO BONDS [address] [place], [address], [facility] 09/04/2024 14:37:58 5 text/html f/u lump the patient was here previously for a lump around his left side groin (not in testicle)most likely a lipoma vs cyst, did recommend at the time to get it imaged to confirm and size itpt declined at last appt, today he has noticed intermittent discomfort when he is laying in bed, probably putting pressure on it doesn't seem bigger to patient, thinks it's gotten biggerabout the same size, no sig difference with size texture or new sympotms ROGELIO BONDS [address] [facility], [place], [address], [facility] 01/25/2025 16:11:56
[2025-02-16 13:52] LABS: Alanine Aminotransferase 31 U/L (0-40); Albumin Level 3.8 g/dL (3.5-5.0); Alkaline Phosphatase 61 U/L (39-117); Anion Gap 7 (12-20); Aspartate Amino Transferase 42 U/L (5-37); Bilirubin Total 0.4 mg/dL (0.0-1.0); Blood Urea Nitrogen 25 mg/dL (9-16); Calcium 8.7 mg/dL (8.4-10.2); Carbon Dioxide 29 mmol/L (22-29); Chloride 107 mmol/L (96-108); Cholesterol 202 mg/dL (<200); Estimated Glomerular Filt Rate > 60; Glucose Fasting 88 mg/dL (60-99); HDL Cholesterol 55 mg/dL (>40); LDL Cholesterol Calculated 134 mg/dL (<100); Sodium 139 mmol/L (135-145); Total Protein 6.1 g/dL (6.5-8.0); Triglycerides 69 mg/dL (<150)
== END 2025-02-16 08:20 | disposition home or self-care (01) ==
LOC: HO.MANLDS 08:19
PROVIDERS: Visit Provider Physician Assistant
DX: E78.00 Pure hypercholesterolemia, unspecified (principal)
CPT/HCPCS: 36415; 80053; 80061

== ENCOUNTER 2025-03-15 15:26 | Outpatient (REF) | payer MEDICARE, OTHER, SELFPAY ==
--- NOTE | ~2025-03-15 | US_ITS ---
EXAMINATION: Ultrasound extremity nonvascular. CLINICAL INFORMATION: Lipoma of the skin. TECHNIQUE: Linear transducer grayscale ultrasound dedicated to the palpable lesion in the left inguinal area. COMPARISON: None FINDINGS: There is a 3.8 x 1.0 x 1.9 cm lobulated, well-defined, isoechoic lesion beneath the skin. No flow on color Doppler interrogation. US/US extremity nonvascular IMPRESSION: 3.8 cm solid lesion beneath the skin, left inguinal region. No definite diagnosis . Electronically signed by: Kvng Perdomo MD 03/16/2025 07:37 AM EDT
--- OUTSIDE RECORDS SUMMARY | 2025-03-15 15:30 | XMS_ITS | Clinical Summary ---
Author Organization [facility] Address [address] [place] [address] Care Team Providers Care Senior Court Office Assistant Name Role Phone Unavailable Primary Care Provider [...]
--- OUTSIDE RECORDS SUMMARY | 2025-03-15 15:31 | XMS_ITS | Data Portability ---
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 Lab lipid panel, blood 2024 025 [facility], [address] [place] [address], [address], 5 16:17:43 CMP, serum or plasma 2024 025 [facility], [address] [place] [address], [address], 5 12:19:35 lyme disease igg+igm, serum, reflex western blot 2022 023 [facility], [address] [place] [address], [address], 3 13:05:08 CBC w/ auto diff 2022 023 [facility], [address] [place] [address], [address], 3 08:23:43 lipid panel, blood 2022 023 [facility], [address] [place] [address], [address], 3 08:23:43 PSA, serum or plasma 2022 023 [facility], [address] [place] [address], [address], 3 16:20:43 hemoglobin A1c, QN, blood 2022 023 [facility], [address] [place] [address], [address], 3 16:20:43 vitamin D, 25-hydroxy , total, serum 2022 023 [facility], [address] [place] [address], [address], 3 16:20:43 lipid panel, serum 2022 023 [facility], [address] [place] [address], [address], 3 16:20:44 CMP, serum or plasma 2022 023 [facility], [address] [place] [address], [address], 3 08:23:42 lipid panel, serum 2021 022 [facility], [address] [place] [address], [address], 2 11:25:32 CMP, serum or plasma 2021 [facility], [address] [place] [address], [address], 11:25:32 CBC 2021 [facility], [address] [place] [address], [address], 11:25:32 PSA, serum or plasma 2021 [facility], [address] [place] [address], [address], 08:46:29 Referral ophthalmol ogist referral 2021 [email or web address] 10 Rodrigue Lugo II, MD, [address] [place] [address], [address], 16:18:27 Procedures None recorded. Surgeries None recorded. Imaging US, abdomen, limited 2024 025 [facility], [address] [place] [address], [address], 5 09:13:11 XR, chest, 2 view 2021 [facility], [address] [place] [address], [address], 2 11:22:47 Medication Orders sildenafil 100 mg tablet 2023 024 [email or web address] Not available 4 14:30:29 benzonatat e 200 mg capsule 2021 022 [email or web address] [id number], [address] [place] [address], [id number], 5 15:40:28 Patient TargetsNo targets recorded. Patient InstructionsNo instructions recorded. Reason for Referral Bridge Tender Referral for Reduced visual acuity Referring Physician: Isaiah Sherwood, Internal Medicine, Encounter Date: 01/19/2022 Results Created Date Observation Date Name Description Value Unit Range Abnormal Flag Note LastModifiedBy Organization Detail LastModifiedTime 01/30/20 22 01/25/2022 XR, chest , 2 view No observ ation record ed. [facility] [address] [place], [address], 01/29/2022 11:46:50 07/01/20 23 06/27/2023 exerc ise stres s test No observ ation record ed. [facility] Cardi[facility] [address] , [place], [address], 07/03/2023 09:23:34 07/24/20 23 07/23/2023 nucle ar stres s test No observ ation record ed. [email or web address] [facility] (Medical Records) [address] [place], [address], 07/26/2023 09:12:06 09/02/20 23 07/23/2023 nucle ar stres s test No observ ation record ed. [email or web address] [facility] (Medical Records) [address] [place], [address], 09/02/2023 12:19:19 09/04/20 24 07/27/2024 CT, chest , w/o contr ast No observ ation record ed. [email or web address] [facility] (Medical Records) [address] [place], [address], 09/08/2024 15:53:22 10/16/20 24 10/16/2024 CT, heart , w/o contr ast, w/ coron tres calci um score No observ ation record ed. [facility] [address] [facility] [address], [place], [address], 11/06/2024 11:55:16 Result Notes None recorded. Problems Name Problem SNOMED Code Status Onset Date Resolution Date Notes Provider Name and Address Organization Details Recorded Time Chronic cough 85545502 Active 2017 Not Available [facility] 2 12:15:19 Lyme disease 53778360 Active 2022 ROGELIO BONDS [address] [place], [address], [facility] [place] [facility] 3 12:24:46 Atypical chest pain 741703999 Active 2022 Isaiah Sherwood DO [address] [place] [address], [address], [facility] [place] [facility] 3 21:50:17 Cardiovasc ular stress test abnormal 298855735 Active 2022 Isaiah Sherwood DO [address] [place] [address], [address], [facility] [place] [facility] 3 22:57:23 Loose stool 117492261 Active 2023 Isaiah Sherwood DO [address] [place] [address], [address], [facility] [place] [facility] 4 10:19:08 Nodule of lung 549141863 Active 2023 [address] BONDS [address] [place] [address], [address], [facility] [place] [facility] 4 15:41:53 Lipoma of groin 968441791 Active 2023 ROGELIO BONDS [address] [place], [address], [facility] [place] [facility] 4 14:29:25 Erectile dysfunctio n 415681871 Active 2023 ROGELIO BONDS [address] [place], [address], [facility] [place] [facility] 4 14:30:06 Aneurysm of ascending aorta 555862326 Active 2023 Isaiah Sherwood DO [address] [place], [address], [facility] [place] [facility] 4 21:01:08 Pneumonia 601541733 Active 2024 ROGELIO BONDS [address] [place], [address], [facility] [place] [facility] 5 12:57:00 Hyperchole sterolemia 25357221 Active 2024 ROGELIO BONDS [address] [place], [address], [facility] [place] [facility] 5 16:11:16 Ataxia 45878878 Active 2017 Not Available [facility] 2 12:15:19 Benign polyp of colon 914707860 Active 2017 Not Available [facility] 2 12:15:19 Multiple skin tags 532785682 Active 2017 Not Available [facility] 2 12:15:19 Ganglion cyst Active 2017 Not Available [facility] 2 12:15:19 Hyperlipid emia 03287076 Active 2017 Not Available [facility] 2 12:15:19 Nocturia 342418504 Active 2017 Not Available [facility] 2 12:15:19 Benign prostatic hyperplasi a 954350156 Active 2017 Not Available [facility] 2 12:15:19 Osteoarthr itis 357282516 Active 2017 CS LS Not Available [facility] 2 12:15:19 Peripheral nerve disease 731018475 Active 2017 Not Available [facility] 2 12:15:19 Disorder of the larynx 59768325 Active 2017 Not Available [facility] 2 12:15:19 Gastroesop hageal reflux disease 818122413 Active 2017 Not Available [facility] 2 12:15:19 Problem Notes None recorded. Procedures Surgical History None recorded. Imaging Results Imaging Date Name Status LastModified by Organiz ation Details LastModified Time 01/25/2022 XR, chest, 2 view completed [facility] [address] [place], [address], 01/29/2022 11:46:50 06/27/2023 exercise stress test completed [facility] [address] , [place], [address], 07/03/2023 09:23:34 07/23/2023 nuclear stress test completed [email or web address] [place] [address] (Medical Records) [address] [place], [address], 07/26/2023 09:12:06 07/23/2023 nuclear stress test completed [email or web address] [facility] (Medical Records) [address] [place], [address], 09/02/2023 12:19:19 07/27/2024 CT, chest, w/o contrast completed [email or web address] [facility] (Medical Records) [address] [place], [address], 09/08/2024 15:53:22 10/16/2024 CT, heart, w/o contrast, w/ coronary calcium score completed [facility] [address] [facility] [address], [place], [address], 11/06/2024 11:55:16 Procedure Notes None recorded. Medical [...] Updated DateTime 2 182.88 cm 25.2 kg/m2 45796.7 4 g 70 /min 94 % 94 % 118 mm[Hg] 76 mm[Hg] Isaiah Sherwood, DO [address] [place], [address] [place] [address] Internal Medicine 2 11:17:09 Date Recorded Body height Body mass index (BMI) Body weight Heart rate Oxygen saturation Oxygen saturation in Arterial blood by Pulse oximetry Systolic blood pressure Diastolic blood pressure Provider Name and Address Organization Details Last Updated DateTime 3 182.88 cm 24.2 kg/m2 80007.6 g 77 /min 97 % 97 % 118 mm[Hg] 64 mm[Hg] Alicia Cooper [facility] 3 15:53:47 Date Recorded Body height Body mass index (BMI) Body weight Heart rate Oxygen saturation Oxygen saturation in Arterial blood by Pulse oximetry Systolic blood pressure Diastolic blood pressure Provider Name and Address Organization Details Last Updated DateTime 4 182.88 cm 24.1 kg/m2 38827.4 4 g 86 /min 97 % 97 % 112 mm[Hg] 78 mm[Hg] Aparna Neal [facility] 4 10:06:02 Date Recorded Body height Provider Name an d Address Organization Details Last Updated DateTime 09/04/2024 182.[address] [facility] 09/04/2024 14:14:06 Date Recorded Body height Body mass index (BMI) Body weight Heart rate Oxygen saturation Oxygen saturation in Arterial blood by Pulse oximetry Systolic blood pressure Diastolic blood pressure Provider Name and Address Organization Details Last Updated DateTime 5 182.88 cm 24.4 kg/m2 86130.6 3 g 84 /min 98 % 98 % 120 mm[Hg] 80 mm[Hg] Leonila López [facility] 5 15:41:46 Social History Question Answer Notes LastModified by Organizat ion Details LastModified Time Tobacco Smoking Status Never Smoker Not Available [facility] 08/30/2020 03:36:24 What Was The Date Of Your Most Recent Tobacco Screening? 01/25/2025 [email or web address] Information not available 01/25/2025 Sex: Unknown Functional Status None recorded. Mental Status None recorded. Family History Nothing Reported. Medical History No medical history recorded. Immunizations Vaccine Type Date Status Note Provider Nam e and Address Organization Details Recorded Time zoster recombinant 2 completed Not Available [facility] 07/17/2023 10:06:32 zoster recombinant 2 completed Not Available [facility] 07/17/2023 10:06:32 Past Encounters Encounter ID Performer Location Encounter Start Date Encounter Closed Date Diagnosis/Indication Diagnosis SNOMED-CT Code Diagnosis ICD10 Code Diagnosis Note [id number] Isaiah Sherwood DO [facility] [address] [facility],[place] [address] 02/28/2018 10:20:13 02/28/2018 16:26:55 Hyperlipidemia 72693341 E78.5 cont current tx watch diet and will rechk lab next visit Gastroesop hageal reflux disease 220701132 K21.9 increase dose of omep 40mg Cough 94198115 R05 from chronic laryngeal reflux will increase dose to 40mg as this is appropriat e for laryngeal reflux [id number] DO [facility] [address] [facility],[place] [address] 07/18/2018 09:46:32 07/18/2018 13:46:46 Osteoarthritis 396771883 M19.90 having usual symptoms of arthralgia nothing out of the ordinary Hyperlipidemia 61052330 E78.5 cont current tx watch diet and will rechk lab next visit Gastroesop hageal reflux disease 558088314 K21.9 increase dose of omep 40mg Adult heal th examination 332043350 Z00.00 Screening for cardiovascular system disease 620090115 Z13.6 Screening for malignant neoplasm of colon 329404822 Z12.11 needs one in next 5 years had it 3 years ago Chronic cough 14565242 R [address] haque has had chronic cough for years [id number] DO Lisa [facility] [address] [facility],[place] [address] 07/25/2018 10:10:27 07/25/2018 10:57:37 Hyperlipidemia 73294249 E78.5 cont current tx watch diet and recent lab is actuallly very good and without issue Chronic cough 11966685 R 05 dr haqueto see for chronic cough for years [id number] Isaiah Sherwood DO [facility] [address] [facility],[place] [address] 06/05/2019 13:42:04 06/05/2019 14:17:53 Hyperlipidemia 60760208 E78.5 cont current tx watch diet and recent lab is actuallly very good and without issue Peripheral nerve disease 019678202 G64 need to have his notes as i have no info [id number] Isaiah Sherwood [facility] [address] [facility], [place] [address] 07/25/2020 10:16:03 07/25/2020 11:09:47 Ganglion cyst of right knee 9540227016 82286 M67.461 will xray the knee first as it does not appear to be a painful issue now Unintentio nal weight loss 040087589 R63.4 but feels good no other symptomato logy or constituti onal signs Family his tory of Cardiovascular disease 074260629 Z82.49 will screen him for disease given family hx Complainin g of - anosmia 141204287 R43.0 [id number] Isaiah Sherwood [facility] [address] [facility], [place] [address] 11/23/2020 08:18:01 11/23/2020 10:42:47 Pre-surgery evaluation 804754012 Z01.818 based on limited exam conducted via telehealth and evaluation done with patient asking about physical and mental fitness, the patient is cleared for surgery [id number] Isaiah Sherwood [facility] [address] [facility], [address] [place] [address] 12/20/2020 09:28:34 12/20/2020 11:12:04 Pain of sternoclavicular joint 667971857 R07.89 will start with xrays told pt to avoid all activity stressing this area pt reluctant to stop.... Family his tory of aneurysm of thoracic aorta 006007252 Z82.49 [id number] Isaiah Sherwood [facility] [address] [facility],[place] [address] 01/19/2022 11:12:04 01/19/2022 15:10:51 Hyperlipidemia 77350401 E78.5 cont current tx watch diet and recent lab is actuallly very good and without issue Gastroesop hageal reflux disease 575026850 K21.9 he is asymptomat ic and except for the cough he has been ok Chronic cough 34652234 R 05.3 he has been through a major w/u including consults and ct and xr and ba eduardo moss seen reading teacher, pulmonolog ist, ENT, GI, and none can figure out why he is coughinghe relates he does NOT cough at night and not in the am but as day goes on it gets worsewe will try tessalonbu t we will get cxr Ganglion c yst of right hand 3104744725 50238 M67.441 we will treat conserv unless it gets worse Reduced visual acuity 13 273804 H54.7 [id number] Isaiah Sherwood DO [facility] [address] [facility],[place] [address] 07/29/2023 15:45:03 07/29/2023 16:47:46 Atypical chest pain 138339865 R07.89 resolved Hyperlipidemia 34453460 E78.2 would like to recheck lab work Lyme disease 84632267 A6 9.29 will recheck levels Adult heal th examination 399373492 Z00.00 will set up with routine lab work [id number] Isaiah Sherwood DO [facility] [address] [facility],[place] [address] 05/15/2024 09:58:41 05/15/2024 10:25:51 Active or passive immunization 687708795 Z23 utd Adult heal th examination 145317082 Z00.00 doing well no major issuesexer cises daily and is vigoroushe is in fantastic shape Depression screening 171 236850 Z13.31 SCREENING NEGATIVE Loose stool 105339711 R1 9.5 since on doxy this has completely cleared [id number] Isaiah Sherwood DO [facility] [address] [facility],[place] [address] 09/04/2024 14:10:24 09/04/2024 15:06:51 Lipoma of groin 645401964 D17.20 if it changes, recommende celio USfor now patient declines US currently, will let me know Erectile dysfunction 860 218570 F52.21 will set up for patient, will try through [facility] or [facility] Rx[facility] script [id number] DO Lisa [facility] [address] [facility] [address],[place] [address] 01/25/2025 15:28:57 01/25/2025 16:25:23 Lipoma of groin 653543470 D17.20 agreed to US at this time Hypercholesterolemia 136 12633 E78.00 rechk Health Concerns Section Related Observation LastModified by Organization Detai ls LastModified Time None Recorded Concern Status LastModified by Organization Details LastModified Time None Recorded Advance Directives Directive None Recorded Payers Encounter Date Sequence Insurance Name Policy Number Policy Bowen Covered Member ID Bowen Member ID Guarantor Name 01/19/2022 1 MEDICARE B-[place]: [employer] Naveed Rios [id number] Naveed Rios 01/19/2022 2 COMMONWEALTH INDEMNITY PLAN - UNICARE [id number] 2 Naveed Rios [id number] Naveed Rios 07/29/2023 1 MEDICARE B-[place]: [employer] Naveed Rios [id number] Naveed Rios 07/29/2023 2 COMMONWEALTH INDEMNITY PLAN - [employer] [id number] 2 Naveed Rios [id number] Naveed Rios 05/15/2024 1 MEDICARE [employer]-[place]: [employer] Naveed Rios [id number] Naveed Rios 05/15/2024 2 COMMONWEALTH INDEMNITY PLAN - [employer] [id number] 2 Naveed Rios [id number] Naveed Rios 09/04/2024 1 MEDICARE B-[place]: [employer] Naveed Rios [id number] Naveed Rios 09/04/2024 2 COMMONWEALTH INDEMNITY PLAN - [employer] [id number] 2 Naveed Rios [id number] Naveed Rios 01/25/2025 1 MEDICARE B-[place]: [employer] Naveed Rios [id number] Naveed Rios 01/25/2025 2 COMMONWEALTH INDEMNITY PLAN - [employer] [id number] 2 Naveed Rios [id number] Naveed Gabriel Notes Date Note Type Note Provider Name [...] consults and nobody can determine why Isaiah De Jesus Kaela, DO [address] [place] [address], [address], [facility] [place] [facility] 01/19/2022 11:50:32 3 text/html fu stress test both his echo, stress test and nuclear stress test were all wnlnothing showing ischemic changes, significant valvular def EF is excellentand overall the tests showed a very healthy heart patient doing wellsymptoms resolved with decreasing his exercise level and then taking a break will set up with routine lab work ROGELIO BONDS [address] [place] [address], [address], [facility] [place] [facility] 07/29/2023 16:31:10 4 text/html Annual [...] the past 6 monthsrelates after he Isaiah AmayaArmen Sherwood, [address] [place], [address], [facility] [place] [facility] 05/15/2024 10:24:25 4 text/html c/o [...] call if it changes ROGELIO BONDS [address] [place], [address], [facility] [place] [facility] 09/04/2024 14:37:58 5 text/html f/u [...] texture or new sympotms ROGELIO BONDS [address] [facility], [place], [address], [facility] [place] [facility] 01/25/2025 16:11:56
== END 2025-03-15 15:27 | disposition home or self-care (01) ==
LOC: HO.US 15:26
PROVIDERS: Visit Provider Physician Assistant
DX: D17.39 Benign lipomatous neoplasm of skin and subcutaneous tissue of other sites (principal)
CPT/HCPCS: 76882

== ENCOUNTER → 2025-03-15 15:40 | Outpatient (BNV) | payer MEDICARE, OTHER, SELFPAY | PROVIDERS: Visit Provider Radiology Diagnostic Radiology | DX: R22.42 Localized swelling, mass and lump, left lower limb (principal) | CPT/HCPCS: 76882 ==

== ENCOUNTER 2025-07-20 07:40 | Outpatient (REF) | payer MEDICARE, OTHER, SELFPAY ==
--- OUTSIDE RECORDS SUMMARY | 2025-07-20 07:44 | XMS_ITS | Encounter Summary ---
Author Organization [facility] Address [address] [facility] [address] [place] [address] Phone Care Team Providers Care Casino Floor Walker Name Role Phone Isaiah Arboleda MD Primary Care Provider [phone] Isaiah Sherwood DO Primary Care Provider [phone] Isaiah Sherwood DO Primary Care Provider [phone] Reason for Referral * Consultation (Elective) - Closed Specialty Diagnoses / Procedures Referred By Contariel sanchez Referred To Contact Neurology Diagnoses Ataxia Cerebellar degeneration Isaiah Arboleda MD Phone: tel: fax: Referral ID Status Reason Start Date Expiration Date Visits Re quested Visits Authorized [id number] Closed 09/07/2016 09/07/2017 1 1 Encounter Details Date Type Department Care Team (Late st Contact Info) Description 09/07/2016 Transcribe Orders [facility] Department of Neurology [address] [place] [address], 8th Floor, [address] [place] [address] Isaiah Arboleda MD [address] [place] [address] Ataxia (Primary Dx); Cerebellar degeneration Social History Tobacco Use Types Packs/Day Years Used Date Smoking Tobacco: Never Assessed Sex and Gender Information Value Date Recorded Sex Assigned at Not on file Legal Sex Male 11:12 AM EST Gender Identity Not on file Sexual Orientation Not on file documented as of this encounter Plan of Treatment Upcoming Encounters Date Type Department Care Team (Late st Contact Info) Description 11/16/2025 1:00 PM EST Office Visit [facility] Neuromuscular Service [address] [facility], 8th [place] [address] Megan Francis MD, MPH [address] [place] [address] [email or web address] Scheduled Referrals Name Type Priority Associated Diagnoses Orde r Schedule Ambulatory referral to [facility] Neurology Outpatient Referral Routine Ataxia Cerebellar degeneration Ordered: 09/07/2016 documented as of this encounter Visit Diagnoses Diagnosis Ataxia- Primary Lack of coordination Cerebellar degeneration Unspecified spinocerebellar disease documented in this encounter Care Teams Casino Floor Walker Relationship Specialty Start Date End Date Isaiah Arboleda MD PCP - General Internal Medicine 08/08/16 12/09/16 Isaiah Sherwood DO [email or web address] PCP - General Internal Medicine 12/10/16 12/10/16 Isaiah Sherwood DO [email or web address] PCP - General Internal Medicine 12/11/16 documented as of this encounter Additional Source Comments The information contained in this document represents components of the legal health record. It is not the complete legal health record.[facility]
--- OUTSIDE RECORDS SUMMARY | 2025-07-20 07:44 | XMS_ITS | Clinical Summary ---
Author Organization [facility] Address [address] [place] [address] Care Team Providers Care Technical Account Executive Name Role Phone Unavailable Primary Care Provider [...] COVID-19 Vaccine ( - 2023-2 5 season) 2025 Influenza (#1) 2025 RSV (1 - 1-dose 75+ series) 01/30/2027 Abdominal Aorta Imaging Discontinued HPV Vaccine (No Doses Required) Completed Hep A Aged Out No longer eligi [...]
--- OUTSIDE RECORDS SUMMARY | 2025-07-20 07:44 | XMS_ITS | Encounter Summary ---
Author Organization [facility] Address [address] [place] [address] Phone Care Team Providers Care City Secretary Name Role Phone Isaiah Sherwood DO Primary Care Provider [phone] Encounter Details Date Type Department Care Team (Late Contact Info) Description 01/08/[address] [facility] [address] [place] [address] Isaiah Sherwood DO [address] [facility] [place] [address] [place] [address] [email or web address] Benign localized hyperplasia of prostate with urinary retention (Primary Dx) Social History Tobacco Use Types Packs/Day Years Used Date Smoking Tobacco: Never Smokeless Tobacco: Never Sex and Gender Information Value Date Recorded Sex Assigned at Not on file Legal Sex Male 11:12 AM EST Gender Identity Not on file Sexual Orientation Not on file documented as of this encounter Plan of Treatment Upcoming Encounters Date Type Department Care Team (Late Contact Info) Description 11/16/2025 1:00 PM EST Office Visit [facility] Neuromuscular Service [address] [facility], 8th [place] [address] Megan Francis MD, MPH 165 [place] [address] [email or web address] documented as of this encounter Procedures Procedure Name Priority Date/Time Associated Diagnosis Comments PSA (SCREENING) Routine 01/08/2018 9:57 AM EDT Benign localized hyperplasia of prostate with urinary retention documented in this encounter Results * PSA (screening) (01/08/2018 9:57 AM EDT) PSA 1.74 0 - 4.00 ng/mL [facility] Blood 01/08/2018 9:57 AM EDT 01/08/2018 10:00 AM EDT us Isaiah Sherwood DO LAB BLOOD ORDERABLES Final Resul t [facility] [address] [place] [address] documented in this encounter Visit Diagnoses Diagnosis Benign localized hyperplasia of prostate with urinary retention- Primary Benign localized hyperplasia of prostate with urinary obstruction and other lower urinary tract symptoms (LUTS) documented in this encounter Care Teams City Secretary Relationship Specialty Start Date End Date Isaiah Sherwood DO [email or web address] PCP - General Internal Medicine 12/11/16 documented as of this encounter Additional Source Comments The information contained in this document represents components of the legal health record. It is not the complete legal health record.[facility]
--- OUTSIDE RECORDS SUMMARY | 2025-07-20 07:44 | XMS_ITS | Clinical Summary ---
Author Organization [facility] Address [facility] [employer] [address] [address] Phone Care Team Providers Care Bacteriologist Industrial Name Role Phone Isaiah Sherwood DO Primary Care Provider [phone] Allergies No known active allergies Medications No known medications Active Problems No known active problems Family History Medical History Relation Comments Lupus Neg Hx Rheumatoid arthritis Neg Hx Social History Tobacco Use Types Packs/Day Years Used Date Smoking Tobacco: Never Smokeless Tobacco: Never Education Answer Date Recorded Are you interested in more education? Not on gustavo e 02/22/2023 Are you concerned about learning? Not on file 02/22/2023 No 02/22/2023 No 02/22/2023 Digital Access Answer Date Recorded No 03/25/2023 No 03/25/2023 Reliable internet access at home? Not on file 03/25/2023 Device with a working camera? Not on file Sex and Gender Information Value Date Recorded Sex Assigned at Not on file Legal Sex Male 11:12 AM EST Gender Identity Not on file Sexual Orientation Not on file Last Filed Vital Signs Vital Sign Reading Time Taken Comments Blood Pressure 142/93 12/24/2024 2:46 PM EST Pulse 84 12/24/2024 2:46 PM EST Temperature 36.6 C (97.8 F) 08/06/2024 3:06 PM EDT Respiratory Rate 16 12/24/2024 2:46 PM EST Oxygen Saturation 94% 08/06/2024 3:06 PM EDT Inhaled Oxygen Concentration - - Weight 81.6 kg (180 lb) 12/24/2024 2:46 PM EST Height 182.9 cm (6') 05/15/2022 1:15 PM EDT Body Mass Index 24.41 05/15/2022 1:15 PM EDT Plan of Treatment Upcoming Encounters Date Type Department Care Team ([facility] st Contact Info) Description 11/16/2025 1:00 PM EST Office Visit [facility] Neuromuscular Service 165 [facility], 8th [place] [address] Megan Francis MD, MPH 165 [place] [address] [email or web address] Health Maintenance Due Date Last Done Comments Adult Td,Tdap Booster 1952 LIPID PANEL 1952 DEPRESSION SCREENING 1964 HEPATITIS C SCREENING 01/30/1970 COLOGUARD 01/30/1997 COLONOSCOPY 01/30/1997 COLORECTAL CANCER SCREENING 01/30/1997 FIT TEST 01/30/1997 FOBT 01/30/1997 SIGMOIDOSCOPY 01/30/1997 VIRTUAL COLONOSCOPY 01/30/1997 PNEUMOCOCCAL VACCINES (50+ years) (1 of 1 - PCV) 01/30/2002 COVID-19 VACCINE ( - 2023-2 5 season) 2024 INFLUENZA VACCINE (#1) 2025 RSV VACCINE (1 - 1-dose 75+ series) 01/30/2027 ZOSTER VACCINES Completed 05/01/2022, 02/16/2022 SMOKING STATUS SCREENING (On ce After 26 Yrs) Completed 12/24/2024 HEPATITIS A VACCINES Aged Out No long er eligible based on patient's age to complete this topic HIB VACCINES Aged Out No longer eligi ble based on patient's age to complete this topic MENINGOCOCCAL VACCINES (ACWY) Aged Out No longer eligible based on patient's age to complete this topic MENINGOCOCCAL VACCINES (B) Aged Out N o longer eligible based on patient's age to complete this topic Medical Devices Not on file Insurance MEDICARE PART A & B Member Subscriber Plan / Payer (Ef fective 2017-Present) Name:Naveed Rios Member ID:[id number] Relation to Subscriber:Self Name:Naveed Rios Subscriber ID:[id number] Payer ID:[id number] Group ID:Not on file Type:Medicare Address: [place] [address] [place] [phone] [facility] [address] MEDICARE PART A & B Member Subscriber Plan / Payer ( fective 2017-Present) Name:Naveed Rios Member ID:[id number] Relation to Subscriber:Self Name:Naveed Rios Subscriber ID:[id number] Payer ID:[id number] Group ID:Not on file Type:Medicare Address: [place] [address] [facility] [place] [id number] MEDICARE PART A & B [employer] MEDICARE SUPPLEMENT MEDICARE PART A & B [employer] MEDICARE SUPPLEMENT MEDICARE PART A & B its learning MEDICARE SUPPLEMENT MEDICARE PART A & B its learning MEDICARE SUPPLEMENT MEDICARE PART A & B its learning MEDICARE SUPPLEMENT MEDICARE PART A & B its learning MEDICARE SUPPLEMENT MEDICARE PART A & B [facility] [employer] MEDICARE SUPPLEMENT Care Teams Bacteriologist Industrial Relationship Specialty Start Date End Date Isaiah Sherwood DO [email or web address] PCP - General Internal Medicine 12/11/16 Additional Source Comments The information contained in this document represents components of the legal health record. It is not the complete legal health record.[facility]
--- OUTSIDE RECORDS SUMMARY | 2025-07-20 07:44 | XMS_ITS | Encounter Summary ---
Author Organization [facility] Address [address] [address] Phone Care Team Providers Care Medical Coder Name Role Phone Isaiah Sherwood DO Primary Care Provider [phone] Encounter Details Date Type Department Care Team (Late Contact Info) Description 07/25/2020 Transcribe Orders Virtual Department 30 [place] [address] Isaiah Sherwood DO [address] [facility] [place] [address] [email or web address] Ganglion, right knee (Primary Dx) Social History Tobacco Use Types [...] Description 11/16/2025 1:00 PM EST Office [place] [facility] [place] [place] 165 [facility], 8th [place] [address] Megan Francis MD, MPH 165 [place] [address] [email or web address] documented as of this encounter Visit Diagnoses Diagnosis Ganglion, right knee- Primary documented in this encounter Care Teams Medical Coder Relationship Specialty Start Date End Date Isaiah Sherwood DO [email or web address] PCP - General Internal Medicine 12/11/16 documented as of this encounter Additional Source Comments The information contained in this document represents components of the legal health record. It is not the complete legal health record.[facility]
--- OUTSIDE RECORDS SUMMARY | 2025-07-20 07:44 | XMS_ITS | Patient Health Record ---
Author Organization [facility] Address [address] [place] [id number] Care Team Providers Care Social Science Research Assistant Name Role Phone EspinozaFabio Unavailable [phone] Reason For Referral No Information Plan Of Treatment No Information
--- OUTSIDE RECORDS SUMMARY | 2025-07-20 07:45 | XMS_ITS | Encounter Summary ---
Author Organization [facility] Address [address] [facility] [place] [address] Phone Care Team Providers Care Prepress Specialist Name Role Phone Isaiah Arboleda MD Primary Care Provider [phone] Isaiah Sherwood DO Primary Care Provider [phone] Isaiah Sherwood DO Primary Care Provider [phone] Encounter Details Date Type Department Care Team (Late st Contact Info) Description 10/31/2016 Procedure Pass MRI, [facility] [address], [address] [place] [address] Social History Tobacco Use Types Packs/Day Years Used Date Smoking Tobacco: Never Sex and Gender Information Value Date Recorded Sex Assigned at Not on file Legal Sex Male 11:12 AM EST Gender Identity Not on file Sexual Orientation Not on file documented as of this encounter Plan of Treatment Upcoming Encounters Date Type Department Care Team (Late st Contact Info) Description 11/16/2025 1:00 PM EST Office Visit [facility] Neuromuscular Service [address] [facility], 8th [place] [address] Megan Francis MD, MPH 165 [place] [address] [email or web address] documented as of this encounter Visit Diagnoses Not on filedocumented in this encounter Care Teams Prepress Specialist Relationship Specialty Start Date End Date Isaiah Arboleda MD PCP - General Internal Medicine 08/08/16 12/09/16 Isaiah Sherwood DO PCP - General Internal Medicine 12/10/16 12/10/16 Isaiah Sherwood DO PCP - General Internal Medicine 12/11/16 documented as of this encounter Additional Source Comments The information contained in this document represents components of the legal health record. It is not the complete legal health record.[facility]
--- OUTSIDE RECORDS SUMMARY | 2025-07-20 07:45 | XMS_ITS | Encounter Summary ---
Author Organization [facility] Address [address] [employer] [facility] [address] [place] [address] Phone Care Team Providers Care Search Manager Name Role Phone HenokIsaiah coker Jose Luis BOWENS Primary Care Provider [phone] Encounter Details Date Type Department Care Team (Latest Contact Info) Description 07/14/2024 Transcribe Orders [facility] [address] [place] [address] Doris Quinn PA [address] [place] [address] [place] [address] Joint pain due to acute Lyme disease (Primary Dx) Social History Tobacco Use Types [...] Description 11/16/2025 1:00 PM EST Office Visit [facility] Neuromuscular Service [address] [facility], 8th [place] [address] Megan Francis MD, MPH [address] [place] [address] [email or web address] documented as of this encounter Results * Lyme Screen with Reflex to Immunoblot, Blood (07/14/2024 10:08 AM EDT) Lyme AB IgG Negative Negative [facility] Lyme AB IgM Negative Negative [facility] Blood 07/14/2024 10:0 8 AM EDT 07/14/2024 10:11 AM EDT Doris [facility] LAB BLOOD ORDERABLES Final Result Performing Organization Address City/State/[facility] Co de Phone Number [address] [address] documented in this encounter Visit Diagnoses Diagnosis Joint pain due to acute Lyme disease- Primary documented in this encounter Care Teams Search Manager Relationship Specialty Start Date End Date Isaiah Sherwood DO [email or web address] PCP - General Internal Medicine 12/11/16 documented as of this encounter Additional Source Comments The information contained in this document represents components of the legal health record. It is not the complete legal health record.[facility]
--- OUTSIDE RECORDS SUMMARY | 2025-07-20 07:45 | XMS_ITS | Encounter Summary ---
Author Organization [facility] Address [address] [facility] [address] [place] [address] Phone Care Team Providers Care Maintenance Supervisor 2Nd Shift Name Role Phone Isaiah Sherwood DO Primary Care Provider Encounter Details Date Type Department Care Team (Late Contact Info) Description 12/18/2017 Ancillary Orders Virtual Department [address] [place] [address] Isaiah Sherwood DO 179 [facility] [place] [address] [place] [address] [email or web address] Other chest pain Social History Tobacco Use Types Packs/Day Years [...] Description 11/16/2025 1:00 PM EST Office [place] [facility] Neurom[facility] Service 165 [facility], 8th [place] [address] Megan Francis MD, MPH 165 [place] [address] [email or web address] documented as of this encounter Results * Stress Test Exercise (12/25/2017 10:49 AM EST) Max BP Systolic 150 mmHg [facility] Max BP Diastolic 60 mmHg [facility] Max HR 179 BPM [facility] Resting HR 111 BPM [facility] Resting BP Systolic 110 mmHg [facility] Resting BP Diastolic 80 mmHg [facility] Peak METS 15.2 METS [facility] Peak HR 179 BPM [facility] Anatomical Region Laterality Modality Heart Other 12/25/2017 9:39 AM EST 12/25/2017 10:39 AM EST Narrative 12/25/2017 12:21 PM EST Stress Test Result The heart rate changed from 111 bpm at rest to 179 bpm at peak stress. The blood pressure changed from 110/80 mmHg at rest. The patient's functional capacity is 15.2 METS. Pt exercised for 12:29 minutes on a SHANI protocol achieving 15.2 METS. Test terminated due to fatigue. Max heart rate 179 (115% MPHR). 1. Baseline EKG showed normal sinus rhythm. No ischemic EKG changes with exercise. 2. No chest pain. 3. Normal BP response to exercise. Excellent functional capacity for age. 4. No ectopy. Conclusion - normal stress test. Talon Mccrary COMMISSIONS SPECIALIST with Dr Jarrett us Isaiah Sherwood DO CV STRESS ORDERABLES Final Resul t documented in this encounter Visit Diagnoses Diagnosis Other chest pain Other chest pain documented in this encounter Care Teams Maintenance Supervisor 2Nd Shift Relationship Specialty Start Date End Date Isaiah Sherwood DO PCP - General Internal Medicine 12/11/16 documented as of this encounter Additional Source Comments The information contained in this document represents components of the legal health record. It is not the complete legal health record.[facility]
--- OUTSIDE RECORDS SUMMARY | 2025-07-20 07:45 | XMS_ITS | Encounter Summary ---
Author Organization [facility] Address [address] [place] [address] Phone Care Team Providers Care Line Decorator Name Role Phone Isaiah Sherwood Primary Care Provider [phone] Encounter Details Date Type Department Care Team (Latest Contact Info) Description 01/15/2019 Transcribe Orders [facility] [address] [place] [address] Gino Quiroz MD [address] [place] [address], [address] [address] [email or web address] Enlarged prostate with urinary obstruction (Primary Dx) Social History Tobacco Use Types [...] Description 11/16/2025 1:00 PM EST Office Visit [facility] Neuromuscular Service 165 [facility], 8th [place] [address] Megan Francis MD, MPH 165 [place] [address] [email or web address] documented as of this encounter Results * PSA (screening) (01/15/2019 10:15 AM EDT) PSA 1.53 0 - 4.00 ng/mL [facility] Blood 01/15/2019 10:1 5 AM EDT 01/15/2019 10:20 AM EDT us Gino Quiroz MD LAB BLOOD ORDERABLES Final Resu lt Performing Organization Address City/State/[facility] Co de Phone Number [facility] [address] [place] [address] documented in this encounter Visit Diagnoses Diagnosis Enlarged prostate with urinary obstruction- Primary Hypertrophy of prostate with urinary obstruction and other lower urinary tract symptoms (LUTS) documented in this encounter Care Teams Line Decorator Relationship Specialty Start Date End Date Isaiah Sherwood DO [email or web address] PCP - General Internal Medicine 12/11/16 documented as of this encounter Additional Source Comments The information contained in this document represents components of the legal health record. It is not the complete legal health record.[facility]
--- OUTSIDE RECORDS SUMMARY | 2025-07-20 07:45 | XMS_ITS | Encounter Summary ---
Author Organization [facility] Address [address] [place] [address] [place] [address] Phone Care Team Providers Care Bus Cleaner Name Role Phone Isaiah Sherwood Jose Luis BOEWNS Primary Care Provider [phone] Encounter Details Date Type Department Care Team (Late Contact Info) Description 08/13/2024 Procedure Pass [facility] - MRI [address] [facility], [address]th [place] [address] Social History Tobacco Use Types Packs/Day Years [...] Description 11/16/2025 1:00 PM EST Office Visit [facility] Neuromuscular Service 165 [facility], 8th [place] [address] Megan Francis MD, MPH 165 [place] [address] [email or web address] documented as of this encounter Visit Diagnoses Not on filedocumented in this encounter Care Teams Bus Cleaner Relationship Specialty Start Date End Date Isaiah Sherwood DO [email or web address] PCP - General Internal Medicine 12/11/16 documented as of this encounter Additional Source Comments The information contained in this document represents components of the legal health record. It is not the complete legal health record.[facility]
--- OUTSIDE RECORDS SUMMARY | 2025-07-20 07:45 | XMS_ITS | Encounter Summary ---
Author Organization [facility] Address [address] [address] Phone Care Team Providers Care Therapy Site Coordinator Name Role Phone Isaiah Sherwood DO Primary Care Provider [phone] Reason for Referral * Outpatient Procedure - Closed Specialty Diagnoses / Procedures Referred By Contac t Referred To Contact Diagnoses Other chest pain Procedures Stress Test Exercise Isaiah Sherwood DO Phone: tel: fax: [email or web address] Referral ID Status Reason Start Date Expiration Date Visits Re quested Visits Authorized [id number] Closed 06/14/2023 1 1 Encounter Details Date Type Department Care Team (Late st Contact Info) Description 06/14/2023 Transcribe Orders Virtual Department [address] [place] [address] Isaiah Sherwood DO [address] [facility] [place] [address] [email or web address] Other chest pain (Primary Dx) Social History Tobacco Use Types [...] Description 11/16/2025 1:00 PM EST Office Visit [facility] Neuromuscular Service [address] [facility], 8th [place] [address] Megan Francis MD, MPH [address] [place] [address] [email or web address] documented as of this encounter Results * Stress Test Exercise (06/27/2023 10:44 AM EDT) Max BP Systolic 164 mmHg [facility] Max BP Diastolic 80 mmHg [facility] Max HR 153 BPM [facility] Resting HR 100 BPM [facility] Resting BP Systolic 102 mmHg [facility] Resting BP Diastolic 62 mmHg [facility] Peak METS 12.3 METS [facility] Peak HR 153 BPM [facility] Anatomical Region Laterality Modality Heart Other 06/27/2023 10:1 1 AM EDT 06/27/2023 10:44 AM EDT Narrative 07/01/2023 3:32 PM EDT I agree with the findings and conclusion of the supervising advanced practitioner. No EKG evidence of ischemia. Patient did report symptoms concerning for angina. Recommend repeat testing with nuclear imaging. Response to Stress The patient exercised for minutes seconds, achieving 12.3 METS at peak exercise. Baseline blood pressure was 102/62 mmHg, and baseline heart rate was 100 bpm. The patient achieved a peak heart rate of 153 bpm, which is% of their maximum predicted heart rate. REPORT- Patient exercised for 9:41 minutes on a SHANI protocol achieving 12.3 METS. Test terminated due to chest discomfort. Baseline resting heart rate was 78 bpm. Maximum heart rate achieved was 153 bpm (102% MPHR). 1. EKG - Baseline EKG showed sinus rhythm. During exercise, there were no EKG changes meeting criteria for ischemia. 2. SYMPTOMS - At peak exercise, patient reported 5/10 chest/upper throat discomfort- like indigestion . This resolved in the recovery period. 3. EXERCISE PHYSIOLOGY - High functional capacity for age. BP 110/60 at rest, 164/80 during exercise, and 130/78 upon discharge from stress lab. 4. ARRHYTHMIAS - Very rare PACs and PVCs. Conclusion - No EKG evidence of ischemia. Patient did report symptoms concerning for angina. Recommend repeat testing with nuclear imaging. Brittany Bautista, STORE MANAGER with Dr Jo. us Isaiah Sherwood DO CV STRESS ORDERABLES Final Resul t documented in this encounter Visit Diagnoses Diagnosis Other chest pain- Primary Other chest pain documented in this encounter Care Teams Therapy Site Coordinator Relationship Specialty Start Date End Date Isaiah Sherwood DO [email or web address] PCP - General Internal Medicine 12/11/16 documented as of this encounter Additional Source Comments The information contained in this document represents components of the legal health record. It is not the complete legal health record.[facility]
[2025-07-20 13:41] LABS: MANUAL DIFF FLAG NO
[2025-07-20 13:45] LABS: Hematocrit 45.4 % (42.0-52.0); Hemoglobin 15.5 g/dl (14.0-18.0); Imm Gran Abs Auto 0.01 X10*3/uL (0.00-0.03); Imm Gran Pct Auto 0.2 % (0.0-0.4); Lymphocytes Absolute Auto 1.5 X10*3/uL (1.2-4.9); Mean Corpuscular HGB Conc 34.1 g/dl (31.0-36.0); Mean Corpuscular Hemoglobin 31.2 pg (27.0-33.0); Mean Corpuscular Volume 91.3 fL (80.0-98.0); NRBC Abs Auto 0.000 X10*3/uL (0.0-0.012); NRBC Pct Auto 0.0 /100WBC (0.0-0.2); Platelet Count 209 X10*3/uL (160-400); Red Blood Count 4.97 X10*6/uL (4.60-5.80); White Blood Count 5.5 X10*3/uL (4.8-10.8)
[2025-07-20 14:34] LABS: Alanine Aminotransferase 31 U/L (0-40); Albumin Level 4.3 g/dL (3.5-5.0); Alkaline Phosphatase 62 U/L (39-117); Anion Gap 8 (12-20); Aspartate Amino Transferase 39 U/L (5-37); Blood Urea Nitrogen 21 mg/dL (9-16); Calcium 9.4 mg/dL (8.4-10.2); Carbon Dioxide 31 mmol/L (22-29); Chloride 106 mmol/L (96-108); Cholesterol 222 mg/dL (<200); Estimated Glomerular Filt Rate > 60; HDL Cholesterol 56 mg/dL (>40); Potassium 4.3 mmol/L (3.3-5.1); Sodium 141 mmol/L (135-145); Thyroid Stimulating Hormone 2.22 uIU/mL (0.32-4.0); Total Protein 6.7 g/dL (6.5-8.0); Triglycerides 94 mg/dL (<150)
[2025-07-20 14:47] LABS: Prostate Specific Antigen 2.09 ng/mL (<0.05-4.0); Vitamin B12 661 pg/mL (200-900)
[2025-07-21 07:34] LABS: Lyme Blot 1.74 index
[2025-07-21 08:17] LABS: Lyme Abs Screen POSITIVE
[2025-07-27 11:44] LABS: 39KD (IgG) Band REACTIVE; 41KD (IgG) Band NON-REACTIVE; Lyme IgG Blot Interp NEGATIVE (NEGATIVE); Lyme IgM Blot Interp NEGATIVE (NEGATIVE)
== END 2025-07-20 07:41 | disposition home or self-care (01) ==
LOC: HO.MANLDS 07:40
PROVIDERS: Visit Provider Internal Medicine
DX: Z12.5 Encounter for screening for malignant neoplasm of prostate (principal); I71.21 Aneurysm of the ascending aorta, without rupture; G60.9 Hereditary and idiopathic neuropathy, unspecified
CPT/HCPCS: 36415; 80053; 80061; 82306; 82607; 84153; 84443; 85025; 85652; 86140; 86617; 86618

== ENCOUNTER → 2025-09-08 10:52 | Outpatient (REF) | payer MEDICARE, OTHER, SELFPAY ==
--- NOTE | 2025-09-08 10:54 | CA_ITS ---
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 Normal LV ejection fraction 55-60% with grade 1 diastolic dysfunction 2. Normal cardiac valvular Dopplers 3. Mildly dilated ascending aorta as well as aortic root 4. Normal RV systolic pressure 5. No gross pericardial effusion Findings Left Ventricle Normal left ventricular size, thickness, and systolic function. The visually estimated ejection fraction is between 55-60%. Spectral Doppler is indicative of an impaired relaxation filling pattern. E/E prime ratio is <8, consistent with normal filling pressures. Evidence suggests grade I (mild) diastolic dysfunction. Right Ventricle Normal right ventricular cavity size and systolic function. Atria Both atria are normal in size. There is no evidence of interatrial shunt. Aortic Valve Normal aortic valve structure and function. There is no aortic valve stenosis. There is no aortic valve regurgitation. Mitral Valve Normal mitral valve structure and function. There is trace mitral valve regurgitation. There is no mitral valve stenosis. Pulmonic Valve The pulmonic valve is likely normal. There is trace pulmonic valve regurgitation. Tricuspid Valve Normal tricuspid valve structure. There is trace tricuspid valve regurgitation. The right ventricular systolic pressure is normal. The right ventricular systolic pressure is 20 mmHg. Normal right atrial pressure. There is no evidence of pulmonary hypertension. Great Vessels The pulmonary artery was not well visualized. There is mild dilatation of the sinuses of Valsalva measuring 4.27 cm and mild dilatation of the ascending aorta measuring 4.10 cm. Venous The inferior vena cava is normal in size and collapses greater than 50% with inspiration. Pericardium/Pleural There is no evidence of pericardial effusion. Prior Study Comparison No prior study available for comparison. Measurements 2D Linear Measurements IVSd: 1.02 0.6-0.9/0.6-1.0 cm LVIDd: 4.89 3.9-5.3/4.2-5.9 cm LVIDd Index: 2.40 2.4-3.2/2.2-3.1 cm/m2 LVIDs: 3.30 2.0-3.6 cm LVPWd: 1.12 0.7-1.1 cm LA Diam: 3.40 2.7-3.8/3.0-4.0 cm LAIDs Index: 1.67 1.5-2.3 cm/m2 LV Mass: 239.72 67-162/88-224 g LV Mass Index: 117.51 43-95/49-115 g/m2 LVOT Diam: 2.30 3.0+(-)1.3 cm 2D Systolic Function EF 4C: 52.70 >55% EF 2C: 58.50 >55% EF BiP: 56.60 >55% Mitral Valve MV Pk E: 0.51 MV PK A: 0.58 MV Decel Time: 293.00 E/A: 0.90 E'Lateral: 8.05 E'Medial: 7.07 E/E' Med: 7.20 E/E' Lat: 6.30 PHT: 86.00 MVA PHT: 2.56 Decel Garfield: 1.74 Aortic Valve AoV Pk Peter: 1.03 AoV Mn Peter: 0.77 AoV VTI: 0.23 AoV Pk Grad: 4.00 Aov Mn Grad: 3.00 HOLLAND Cont.VTI: 3.31 LVOT LVOT Pk Peter: 0.94 LVOT Mn Peter: 0.65 LVOT VTI: 0.18 LVOT Pk Grad: 4.00 LVOT Mn Grad: 2.00 LVOT Diam: 2.30 LVOT Area: 4.15 Diastolic Function MV Pk E: 0.51 MV Pk A: 0.58 E/A: 0.90 E'Medial: 7.07 E/E' Med: 7.20 E' Laterial: 8.05 E/E' Lat: 6.30 Right Ventricle TAPSE (mm): 28.20 TVS' Peter: 13.50 Tricuspid Valve TR Pk Peter: 2.06 TR Pk Grad: 17.00 RA Press: 3.00 RVSP: 20.00 Great Vessels Aorta Sinus of Valsalva: 4.27 2.0-3.[address] Ridge: 3.27 1.7-3.4 cm Ao Asc: 4.10 2.1-3.4 cm Ao Arch: 3.50 Pulmonary Veins Pulm Vein S/D 1.20 Updated in Other Vendor System with Status of Final Felipe Ortiz MD electronically signed on 09/08/2025 6:23:16 PM with status of Final
--- OUTSIDE RECORDS SUMMARY | 2025-09-08 13:12 | XMS_ITS | Encounter Summary ---
Author Organization [facility] Address [address] [facility] [address] [place] [address] Phone Care Team Providers Care Lever Miller Name Role Phone Isaiah Arboleda MD Primary Care Provider [phone] Isaiah Sherwood DO Primary Care Provider [phone] Isaiah Sherwood DO Primary Care Provider [phone] Reason for Referral * Consultation (Elective) - Closed Specialty Diagnoses / Procedures Referred By Contariel sanchez Referred To Contact Neurology Diagnoses Ataxia Cerebellar degeneration Isaiah Arboleda MD Phone: tel: fax: Referral ID Status Reason Start Date Expiration Date Visits Re quested Visits Authorized [id number] Closed 09/07/2016 09/07/2017 1 1 Encounter Details Date Type Department Care Team (Late st Contact Info) Description 09/07/2016 Transcribe Orders [facility] Department of Neurology [address] [place] [address], 8th Floor, [address] [place] [address] Isaiah Arboleda MD [address] [place] [address] Ataxia (Primary Dx); Cerebellar degeneration Social History [...] Description 11/16/2025 1:00 PM EST Office Visit [facility] Neuromuscular Service [address], [address] [place] [address] Megan Francis MD, MPH 55 [facility] [address] [place] [phone] [email or web address] Scheduled Referrals Name Type Priority Associated Diagnoses Orde r Schedule Ambulatory referral to [facility] Neurology Outpatient Referral Routine Ataxia Cerebellar degeneration Ordered: 09/07/2016 documented as of this encounter Visit Diagnoses Diagnosis Ataxia- Primary Lack of coordination Cerebellar degeneration Unspecified spinocerebellar disease documented in this encounter Care Teams Lever Miller Relationship Specialty Start Date End Date Isaiah Arboleda MD PCP - General Internal Medicine 08/08/16 12/09/16 Isaiah Sherwood DO [email or web address] PCP - General Internal Medicine 12/10/16 12/10/16 Isaiah Sherwood DO [email or web address] PCP - General Internal Medicine 12/11/16 documented as of this encounter Additional Source Comments The information contained in this document represents components of the legal health record. It is not the complete legal health record.[facility]
--- OUTSIDE RECORDS SUMMARY | 2025-09-08 13:12 | XMS_ITS | Patient Health Record ---
Author Organization [facility] Address [address] [place] [phone] Care Team Providers Care Regional Hr Manager Name Role Phone EspinozaFabio Unavailable [phone] Reason For Referral No Information Plan Of Treatment No Information
--- OUTSIDE RECORDS SUMMARY | 2025-09-08 13:12 | XMS_ITS | Clinical Summary ---
Author Organization [facility] Address [address] [place] [address] Care Team Providers Care Senior Vice President Name Role Phone Unavailable Primary Care Provider [...] of 2) 01/30/2002 COVID-19 Vaccine ( - 2024-2 6 season) 2025 Influenza (#1) 2025 RSV (1 [...]
--- OUTSIDE RECORDS SUMMARY | 2025-09-08 13:12 | XMS_ITS | Clinical Summary ---
Author Organization [facility] Address [facility] [employer] [address] [address] Phone Care Team Providers Care Information Resources Manager Name Role Phone Isaiah Sherwood DO Primary Care Provider [phone] Allergies No known active allergies Medications No [...] Upcoming Encounters Date Type Department Care Team ([facility] st Contact Info) Description 11/16/2025 1:00 PM EST Office Visit [facility] Neuromuscular Service [address] [place] [address] Megan Francis MD, MPH [address] [facility] [address] [place] [address] [email or web address] Health Maintenance Due Date Last Done Comments Adult Td,Tdap Booster 1950 LIPID PANEL 1950 DEPRESSION SCREENING 1964 HEPATITIS C SCREENING 01/30/1970 COLOGUARD 01/30/1997 COLONOSCOPY 01/30/1997 COLORECTAL CANCER SCREENING 01/30/1997 FIT TEST 01/30/1997 FOBT 01/30/1997 SIGMOIDOSCOPY 01/30/1997 VIRTUAL COLONOSCOPY 01/30/1997 PNEUMOCOCCAL VACCINES (50+ years) (1 of 1 - PCV) 01/30/2002 INFLUENZA VACCINE (#1) 2025 COVID-19 VACCINE (1 - 2024-2 6 season) 2025 RSV VACCINE (1 - 1-dose 75+ series) 01/30/2027 ZOSTER VACCINES Completed 05/01/2022, 02/16/2022 SMOKING STATUS SCREENING (On ce After 26 Yrs) Completed 12/24/2024 HEPATITIS A VACCINES Aged Out No long er eligible based on patient's age to complete this topic HIB VACCINES Aged Out No longer eligi ble based on patient's age to complete this topic IPV VACCINES Aged Out No longer eligi ble based on patient's age to complete this topic MENINGOCOCCAL VACCINES (ACWY) Aged Out No longer eligible based on patient's age to complete this topic MENINGOCOCCAL VACCINES (B) Aged Out N o longer eligible based on patient's age to complete this topic Medical Devices Not on file Insurance MEDICARE PART A & [facility] [employer] MEDICARE SUPPLEMENT MEDICARE PART A & B [employer] MEDICARE SUPPLEMENT MEDICARE PART A & B [employer] MEDICARE SUPPLEMENT MEDICARE PART A & B [employer] MEDICARE SUPPLEMENT MEDICARE PART A & B [employer] MEDICARE SUPPLEMENT MEDICARE PART A & B [employer] MEDICARE SUPPLEMENT MEDICARE PART A & B [employer] MEDICARE SUPPLEMENT MEDICARE PART A & B [employer] MEDICARE SUPPLEMENT MEDICARE PART A & B [facility] [employer] [place] [address] Care Teams Information Resources Manager Relationship Specialty Start Date End Date Isaiah Sherwood DO PCP - General Internal Medicine 12/11/16 Additional Source Comments The information contained in this document represents components of the legal health record. It is not the complete legal health record.[facility]
--- OUTSIDE RECORDS SUMMARY | 2025-09-08 13:13 | XMS_ITS | Encounter Summary ---
Author Organization [facility] Address [address] [address] Phone Care Team Providers Care Lens Dotter Name Role Phone Isaiah Sherwood DO Primary Care Provider [phone] Encounter Details Date Type Department Care Team (Late Contact Info) Description 01/08/2018 Transcribe Orders [address] [place] [address] Isaiah Sherwood DO [address] [facility] [employer] [place] [address] [place] [address] [email or web address] Benign localized hyperplasia of prostate with urinary [...] Description 11/16/2025 1:00 PM EST Office Visit [facility] [place] [place] [address]th [place] [address] Megan Francis MD, MPH 55 [facility] [address] [place] [phone] [email or web address] documented as of this encounter Procedures Procedure Name Priority Date/Time Associated Diagnosis Comments PSA (SCREENING) Routine 01/08/2018 9:57 AM EDT Benign localized hyperplasia of prostate with urinary retention documented in this encounter Results * PSA (screening) (01/08/2018 9:57 AM EDT) PSA 1.74 0 - 4.00 ng/mL [facility] Blood 01/08/2018 9:57 AM EDT 01/08/2018 10:00 AM EDT us Isaiah Sherwood DO LAB BLOOD BKR ORDERABLES Final R esult [address] [address] documented in this encounter Visit Diagnoses Diagnosis Benign localized hyperplasia of prostate with urinary retention- Primary Benign localized hyperplasia of prostate with urinary obstruction and other lower urinary tract symptoms (LUTS) documented in this encounter Care Teams Lens Dotter Relationship Specialty Start Date End Date Isaiah Sherwood DO [email or web address] PCP - General Internal Medicine 12/11/16 documented as of this encounter Additional Source Comments The information contained in this document represents components of the legal health record. It is not the complete legal health record.[facility]
--- OUTSIDE RECORDS SUMMARY | 2025-09-08 13:13 | XMS_ITS | Encounter Summary ---
Author Organization [facility] Address [address] [facility] [address] [place] [address] Phone Care Team Providers Care Senior Data Modeler Name Role Phone Isaiah Arboleda MD Primary Care Provider [phone] Isaiah Sherwood DO Primary Care Provider [phone] Isaiah Sherwood DO Primary Care Provider [phone] Encounter Details Date Type Department Care Team (Late st Contact Info) Description 10/31/2016 Procedure Pass MRI, [facility] - [address], [address] [place] [id number] Social History Tobacco Use Types Packs/Day Years [...] Description 11/16/2025 1:00 PM EST Office Visit [facility] Neuromuscular Service [address] [place] [address] Megan Francis MD, MPH 55 [facility] [address] [place] [phone] [email or web address] documented as of this encounter Visit Diagnoses Not on filedocumented in this encounter Care Teams Senior Data Modeler Relationship Specialty Start Date End Date Isaiah Arboleda MD PCP - General Internal Medicine 08/08/16 12/09/16 Isaiah Sherwood DO PCP - General Internal Medicine 12/10/16 12/10/16 Isaiah Sherwood DO [email or web address] PCP - General Internal Medicine 12/11/16 documented as of this encounter Additional Source Comments The information contained in this document represents components of the legal health record. It is not the complete legal health record.[facility]
--- OUTSIDE RECORDS SUMMARY | 2025-09-08 13:13 | XMS_ITS | Encounter Summary ---
Author Organization [facility] Address [address] [place] [address] Phone Care Team Providers Care Traffic Rate Clerk Name Role Phone Isaiah Sherwood Primary Care Provider [phone] Encounter Details Date Type Department Care Team (Latest Contact Info) Description 01/15/2019 Transcribe Orders [address] [address] Gino Quiroz MD [address] [place] [address], [address] [address] [email or web address] Enlarged prostate with [...] Description 11/16/2025 1:00 PM EST Office Visit [facility] Neuromuscular Service [address] [place] [address] Megan Francis MD, MPH 55 [facility] [address] [place] [address] [email or web address] documented as of this encounter Results * PSA (screening) (01/15/2019 10:15 AM EDT) PSA 1.53 0 - 4.00 ng/mL [facility] Blood 01/15/2019 10:1 5 AM EDT 01/15/2019 10:20 AM EDT us Gino Quiroz MD LAB BLOOD BKR ORDERABLES Final Result [address] [address] documented in this encounter Visit Diagnoses Diagnosis Enlarged prostate with urinary obstruction- Primary Hypertrophy of prostate with urinary obstruction and other lower urinary tract symptoms (LUTS) documented in this encounter Care Teams Traffic Rate Clerk Relationship Specialty Start Date End Date Isaiah Sherwood DO [email or web address] PCP - General Internal Medicine 12/11/16 documented as of this encounter Additional Source Comments The information contained in this document represents components of the legal health record. It is not the complete legal health record.[facility]
--- OUTSIDE RECORDS SUMMARY | 2025-09-08 13:13 | XMS_ITS | Data Portability ---
Author Organization [facility], Telehealth Patient Home Address [address] [facility] [place] [address] Assessment Encounter Date Assessment Date Assessment LastModified by Organization Details LastModified Time 07/13/2025 07/13/2025 Patient presente d to office today for their Medicare Annual Wellness Visit. Education was provided on healthy nutrition, including a diet rich in fruits and vegetables, minimizing simple carbohydrates, salt, and saturated fats. Encouraged regular cardiovascular exercise such as walking at least 30 minutes daily, 5 times per week. Emphasized preventive health measures and educated pt on fall prevention and community-based lifestyle interventions to help reduce health risks and promote healthy living. Not available 06/22/2025 12:04:47 Plan of Treatment Reminders Order Date Submit Date Provider Last Modified By Organization Details Last Modified Time Details Appointments MEDICARE ANNUAL WELLNESS 2025 09:30A M DR ZABALA Not available Not available Not available Lab hemoglobi n, gastroint estinal, stool 2024 025 [facility], [address] [place] [address], [id number], 07/13/2025 10:05:28 lipid panel, blood 2024 025 [facility], [address] [place] [address], [place], [address], 01/25/2025 16:17:43 CMP, serum or plasma 2024 025 [facility], [address] [place] [address], [id number], 02/17/2025 12:19:35 lyme disease igg+igm, serum, reflex western blot 2022 023 [facility], [address] [place] [address], [id number], 08/14/2023 13:05:08 CBC w/ auto diff 2022 023 [facility], [address] [place] [address], [id number], 08/06/2023 08:23:43 lipid panel, blood 2022 023 [facility], [address] [place] [address], [id number], 08/06/2023 08:23:43 PSA, serum or plasma 2022 023 [facility], [address] [place] [address], [id number], 07/29/2023 16:20:43 hemoglobi n A1c, QN, blood 2022 023 [facility], [address] [place] [address], [id number], 07/29/2023 16:20:43 vitamin D, 25-hydrox y, total, serum 2022 023 [facility], [address] [place] [address], [id number], 07/29/2023 16:20:43 lipid panel, serum 2022 023 [facility], [address] [place] [address], [id number], 07/29/2023 16:20:44 CMP, serum or plasma 2022 023 [facility], [address] [place] [address], [id number], 08/06/2023 08:23:42 Referral None recorded. Procedures None recorded. Surgeries None recorded. Imaging US, abdomen, limited 2024 025 [facility], [address] [place], [address], 01/26/2025 09:13:11 Medication Orders sildenafi l 100 mg tablet 2024 025 [id number], [address] [place], [place], [id number], 07/13/2025 14:14:34 sildenafi l 100 mg tablet 2023 024 Not available 07/13/2025 14:14:25 Patient TargetsNo targets recorded. Patient Instructions Encounter Date Encounter Id Patient Instructions Last Modified By Organization Details Last Modified Time 07/13/2025 [id number] advance care planning: care instructions Not available 07/13/2025 10:04:28 Discussed and explained advance directives such as standard forms to the . Face to face discussion lasted for a duration of ___ minutes. Not available 06/22/2025 12:04:47 Reason for Referral None Reported. Results Created Date Observation Date Name Description Value Unit Range Abnormal Flag Note LastModifiedBy Organization Detail LastModifiedTime 07/01/2006/27/2023 exerc ise stres s test No observ ation record ed. [facility] Cardiovascula r [place] [address], [place], [address], 07/03/2023 09:23:34 07/24/20 23 07/23/2023 nucle ar stres s test No observ ation record ed. [email or web address] [place] [address] (Medical Records) [address] [place], [address], 07/26/2023 09:12:06 09/02/20 23 07/23/2023 nucle ar stres s test No observ [facility]ion [facility] [address] [place], [address], 09/02/2023 12:19:19 09/04/20 24 07/27/2024 CT, chest , w/o contr ast No observ ation record ed. [email or web address] [facility] (Medical Records) [address] [place], [address], 09/08/2024 15:53:22 10/16/20 24 10/16/2024 CT, heart , w/o contr ast, w/ coron tres calci um score No observ ation record ed. [facility] [address] [facility] [address], [place], [address], 11/06/2024 11:55:16 03/16/20 25 03/15/2025 US, extre mity, nonva scula r No observ ation record ed. [facility] (Medical Records) [address] [place], [address], 07/13/2025 09:47:26 Result Notes None recorded. Problems Name Problem SNOMED Code Status Onset Date Resolution Date Notes Provider Name and Address Organization Details Recorded Time Ataxia Active 2017 Not Available [facility] 2 12:15:19 Benign polyp of colon 651430059 Active 2017 Not Available [facility] 2 12:15:19 Multiple skin tags 475039746 Active 2017 Not Available [facility] 2 12:15:19 Ganglion cyst Active 2017 Not Available [facility] 2 12:15:19 Hyperlipid emia 18929996 Active 2017 Not Available [facility] 2 12:15:19 Nocturia 179913573 Active 2017 Not Available [facility] 2 12:15:19 Benign prostatic hyperplasi a 100575356 Active 2017 Not Available [facility] 2 12:15:19 Osteoarthr itis 870209549 Active 2017 CS LS Not Available [facility] 2 12:15:19 Peripheral nerve disease 446963951 Active 2017 Not Available [facility] 2 12:15:19 Disorder of the larynx 29538212 Active 2017 Not Available [facility] 2 12:15:19 Gastroesop hageal reflux disease 907133532 Active 2017 Not Available [facility] 2 12:15:19 Chronic cough 29502782 Active 2017 Not Available [facility] 2 12:15:19 Lyme disease 61970565 Active 2022 Isaiah Zabala DO [address] [place] [address], [address], [facility] 5 22:49:36 Atypical chest pain 537740190 Active 2022 Isaiah Zabala DO [address] [place] [address], [address], [facility] 3 21:50:17 Cardiovasc ular stress test abnormal 657850616 Active 2022 Isaiah Zabala DO [address] [place] [address], [address], [facility] 3 22:57:23 Loose stool 138647407 Active 2023 Isaiah Zabala DO [address] [place] [address], [address], [facility] 4 10:19:08 Nodule of lung 363367419 Active 2023 ROGELIO BONDS [address] [place] [address], [address], [facility] 4 15:41:53 Lipoma of groin 469558913 Active 2023 ROGELIO BONDS [address] [place] [address], [address], [facility] 4 14:29:25 Erectile dysfunctio n 679676301 Active 2023 ROGELIO BONDS [address] [place], [address], [facility] 4 14:30:06 Aneurysm of ascending aorta 881224407 Active 2023 Isaiah Zabala DO [address] [place] [address], [address], [facility] 4 21:01:08 Pneumonia 112219643 Active 2024 ROGELIO BONDS [address] [place] [address], [address], [facility] 5 12:57:00 Hyperchole sterolemia 17215368 Active 2024 ROGELIO BONDS [address] [place] [address], [address], [facility] 5 16:11:16 Peripheral neuropathi c pain 745533053 Active 2024 Isaiah Zabala, [address] [place] [address], [address], [facility] 5 10:07:02 Idiopathic peripheral neuropathy 53002276 Active 2024 Isaiah Zaabla DO [address] [place] [address], [address], [facility] 5 10:07:08 Problem Notes None recorded. Medical Equipment None Reported. Allergies No known drug allergies Medications Name Sig Start Date Stop Date Status Note LastModified by Organization Details LastModified Time Prescriptio n - Prior Authorizati on Request active Not Available Not Available N ot Available prednisone 10 mg tablet 40 mg x 2 days30 mg x 2 days20 mg x 2 days10 mg x 2 days 01/25 completed Not Available Not Available Not [...] tablet TAKE 1 TABLET BY MOUTH EVERY DAY active Not Available Not Available No t [...] TAKE 1 TABLET BY MOUTH TWICE DAILY active Not Available Not Available No t Available amoxicillin 875 mg-potassiu m clavulanate 125 mg tablet TAKE 1 TABLET BY MOUTH EVERY 12 HOURS FOR 10 DAYS 01/25 completed Not Available Not Available Not Available Restasis 0.05 % eye drops in a dropperette INSTILL 1 DROP INTO BOTH EYES TWICE DAILY FOR 90 DAYS 05/15 completed Not Available Not Available Not Available tadalafil 10 mg tablet TAKE 1 TABLET BY MOUTH EVERY DAY active Not Available Not Available No t Available tadalafil 20 mg tablet Take 1 tablet every day by oral route for 30 days. 2024 active Not Available Not Available Not Avai lable Prolensa 0.07 % eye drops 05/15 completed Not Available Not Available Not Available Vitals Date Recorded Body height Body mass index (BMI) Body weight Heart rate Oxygen saturation Oxygen saturation in Arterial blood by Pulse oximetry Systolic And Diastolic Provider Name and Address Organization Details Last Updated DateTime 5 182.88 cm 24.4 kg/m2 96782.6 3 g 84 /min 98 % 98 % 120/80 mm[Hg] Leonila López [facility] 5 15:41:46 Date Recorded Body height Body mass index (BMI) Body weight Heart rate Oxygen saturation Oxygen saturation in Arterial blood by Pulse oximetry Systolic And Diastolic Provider Name and Address Organization Details Last Updated DateTime 4 182.88 cm 24.1 kg/m2 44446.4 4 g 86 /min 97 % 97 % 112/78 mm[Hg] Aparna Neal [facility] 4 10:06:02 Date Recorded Body height Body mass index (BMI) Body weight Oxygen saturation Oxygen saturation in Arterial blood by Pulse oximetry Heart rate Systolic And Diastolic Provider Name and Address Organization Details Last Updated DateTime 5 182.88 cm 24.9 kg/m2 96102.5 6 g 98 % 98 % 90 /min 102/64 mm[Hg] Grecia Foreman [facility] 5 09:35:45 Date Recorded Body height Body mass index (BMI) Body weight Heart rate Oxygen saturation Oxygen saturation in Arterial blood by Pulse oximetry Systolic And Diastolic Provider Name and Address Organization Details Last Updated DateTime 3 182.88 cm 24.2 kg/m2 11430.6 g 77 /min 97 % 97 % 118/64 mm[Hg] Alicia Allison [facility] 3 15:53:47 Date Recorded Body height Provider Name an d Address Organization Details Last Updated DateTime 09/04/2024 182.88 [facility] 09/04/2024 14:14:06 Social History Question Answer Notes LastModified by Organizat ion Details LastModified Time Tobacco Smoking Status Never Smoker Not Available [facility] 08/30/2020 03:36:24 What Was The Date Of Your Most Recent Tobacco Screening? 07/13/2025 Information not available 07/13/2025 Sex: Unknown Functional Status None recorded. Mental Status None recorded. Family History Nothing Reported. Medical History No medical history recorded. Immunizations Vaccine Type Date Status Note Provider Nam e and Address Organization Details Recorded Time zoster recombinant 2 completed Not Available [facility] 07/17/2023 10:06:32 zoster recombinant 2 completed Not Available [facility] 07/17/2023 10:06:32 Past Encounters Encounter ID Performer Location Encounter Start Date Encounter Closed Date Diagnosis/Indication Diagnosis SNOMED-CT Code Diagnosis ICD10 Code Diagnosis IMO Codes Diagnosis Note [id number] [facility] [address] [facility] [address] 02/28/2018 10:20:13 02/28/2018 16:26:55 Hyperlipidemia 05604939 E78.5 cont current tx watch diet and will rechk lab next visit Gastroesop hageal reflux disease 446978904 K21.9 increase dose of omep 40mg Cough 66713641 R05 from chronic laryngeal reflux will increase dose to 40mg as this is appropriat e for laryngeal reflux [id number] [facility] [address] [facility] [address] 07/18/2018 09:46:32 07/18/2018 13:46:46 Osteoarthritis 888438835 M19.90 having usual symptoms of arthralgia nothing out of the ordinary Hyperlipidemia 25157059 E78.5 cont current tx watch diet and will rechk lab next visit Gastroesop hageal reflux disease 193694297 K21.9 increase dose of omep 40mg Adult [facility] th examination 299738558 Z00.00 Screening for cardiovascular system disease 247309344 Z13.6 Screening for malignant neoplasm of colon 611917171 Z12.11 needs one in next 5 years had it 3 years ago Chronic cough 00571207 R [address] haque has had chronic cough for years [id number] [facility] [address] [facility] [place] [address] 07/25/2018 10:10:27 07/25/2018 10:57:37 Hyperlipidemia 43690060 E78.5 cont current tx watch diet and recent lab is actuallly very good and without issue Chronic cough 18209212 R 05 dr haqueto see for chronic cough for years [id number] [facility] [address] [facility] [address],[place] [address] 06/05/2019 13:42:04 06/05/2019 14:17:53 Hyperlipidemia 93297961 E78.5 cont current tx watch diet and recent lab is actuallly very good and without issue Peripheral nerve disease 591634717 G64 need to have his notes as i have no info [id number] Isaiah Zabala [facility] [address] [facility],[place] [address] 07/25/2020 10:16:03 07/25/2020 11:09:47 Ganglion cyst of right knee 2364822415 90301 M67.461 will xray the knee first as it does not appear to be a painful issue now Unintentio nal weight loss 217378828 R63.4 but feels good no other symptomato logy or constituti onal signs Family his tory of Cardiovascular disease 323887506 Z82.49 will screen him for disease given family hx Complainin g of - anosmia 285596975 R43.0 [id number] Isaiah Zabala [facility] [address] [facility],[place] [address] 11/23/2020 08:18:01 11/23/2020 10:42:47 Pre-surgery evaluation 648482863 Z01.818 based on limited exam conducted via telehealth and evaluation done with patient asking about physical and mental fitness, the patient is cleared for surgery [id number] Isaiah Zabala [facility] [address] [place] [address], [place] [address] 12/20/2020 09:28:34 12/20/2020 11:12:04 Pain of sternoclavicular joint 682773575 R07.89 will start with xrays told pt to avoid all activity stressing this area pt reluctant to stop.... Family his tory of aneurysm of thoracic aorta 794024207 Z82.49 [id number] Isaiah Zabala [facility] [address] [facility],[place] [address] 01/19/2022 11:12:04 01/19/2022 15:10:51 Hyperlipidemia 63461487 E78.5 cont current tx watch diet and recent lab is actuallly very good and without issue Gastroesop hageal reflux disease 872235775 K21.9 he is asymptomat ic and except for the cough he has been ok Chronic cough 94007652 R 05.3 he has been through a major w/u including consults and ct and xr and ba eduardo moss seen informatics physician, pulmonolog ist, ENT, GI, and none can figure out why he is coughinghe relates he does NOT cough at night and not in the am but as day goes on it gets worsewe will try tessalonbu t we will get cxr Ganglion c yst of right hand 4950743370 48210 M67.441 we will treat conserv unless it gets worse Reduced visual acuity 13 128663 H54.7 [id number] Isaiah Zabala [facility] [address] [facility],[address] [place] [employer] [place] [address] 07/29/2023 15:45:03 07/29/2023 16:47:46 Atypical chest pain 795901126 R07.89 resolved Hyperlipidemia 65547123 E78.2 would like to recheck lab work Lyme disease 60099809 A6 9.29 will recheck levels Adult heal th examination 708198143 Z00.00 will set up with routine lab work [id number] Isaiah Zabala DO [facility] [address] [facility],[place] [address] 05/15/2024 09:58:41 05/15/2024 10:25:51 Active or passive immunization 292169515 Z23 utd Adult heal th examination 048014182 Z00.00 doing well no major issuesexer cises daily and is vigoroushe is in fantastic shape Depression screening 171 490929 Z13.31 SCREENING NEGATIVE Loose stool 605164124 R1 9.5 since on doxy this has completely cleared [id number] Isaiah Zabala [facility] [address] [facility],[place] [address] 09/04/2024 14:10:24 09/04/2024 15:06:51 Lipoma of groin 962254373 D17.20 if it changes, recommende d USfor now patient declines US currently, will let me know Erectile dysfunction 860 405260 F52.21 will set up for patient, will try through [facility] [employer] or Good Rxgiven script [id number] Isaiah Zabala [facility] [address] [facility] [address],[place] [address] 01/25/2025 15:28:57 01/25/2025 16:25:23 Lipoma of groin 471874699 D17.20 agreed to US at this time Hypercholesterolemia 136 44231 E78.00 rechk [id number] Isaiah Zabala [facility] [address] [facility] [address],[place] [address] 07/13/2025 09:29:35 07/13/2025 10:17:02 Screening for cardiovascular system disease 668583360 Z13.6 Screening for malignant neoplasm of colon 394056461 Z12.11 needs one in next 5 years had it 3 years ago Depression screening 171 593089 Z13.31 SCREENING NEGATIVE Hyperlipidemia 87537878 E78.2 cont current tx watch diet and recent lab is actuallly very good and without issue Peripheral nerve disease 843243621 G64 need to have his notes as i have no info General ex amination of patient 178956862 Z00.01 39480760 only major problem is the peripheral nerve disease it has mad his gait and balance an issue but he has not fallen walking almost daily 4-5 miles ea doing well no major issuesexer cises daily and is vigoroushe is in fantastic shape Erectile dysfunction 860 404033 F52.21 Health Concerns Section Related Observation LastModified by Organization Detai ls LastModified Time None Recorded Concern Status LastModified by Organization Details LastModified Time None Recorded Advance Directives Directive None Recorded Payers Insurance Date Sequence Insurance Name Policy Number Policy Bowen Covered Member ID Bowen Member ID Guarantor Name 07/10/2025 1 [place] [facility] [employer] Naveed Rios [id number] Naveed Rios 07/10/2025 2 [facility] IN[employer]MNITY [employer] (INDEMNITY) [id number] 2 Naveed Rios [id number] Naveed Rios Notes Date Note Type Note Provider Name and Address Organization Details Recorded Time 07/29/20 23 text/htm l ROS as noted in the HPI fu stress test both his echo, stress test and nuclear stress test were all wnlnothing showing ischemic changes, significant valvular def EF is excellentand overall the tests showed a very healthy heart patient doing wellsymptoms resolved with decreasing his exercise level and then taking a break will set up with routine lab work ROGELIO BONDS [address] [place], [address], [facility] 07/29/2023 16:31:10 05/15/20 24 text/htm l Annual WellnessReported by PatientSocial/Behavioral HistoryFor diet and nutrition, patient reportshealthy diet. For fracture risk, patient reportsno history of fractures,no recent explained fracture,no sudden unexplained fractures, andno previous musculoskeletal injuries. For physical activity, patient reportsexercises on a regular basis,recent increase in physical activity, andgood physical condition. For additional lifestyle factors, patient reportsno tobacco use,no alcohol intake, andstopped drinking alcohol.Mental Status:For depression risk, patient reportsnever feels sad, empty, or tearful,no loss of interest in activities,no significant changes in weight,no sleep disturbances or insomnia,no agitation,no loss of energy,no feelings of worthlessness or guilt,no thoughts of suicide,no history of depression, andno history of mood disorders.Functional AbilityFor hearing, patient reportsno loss of hearing. For vision, patient reportsno vision problems.ROS as noted in the HPI here for rechk and is doing wellhas had loose stool for the past 6 monthsrelates after he Isaiah Zabala DO [address] [place], [address], [facility] 05/15/2024 10:24:25 09/04/20 24 text/htm l ROS as noted in the HPI c/o lump on the groin the patient [...] call if it changes ROGELIO BONDS [address] [place], [address], [facility] 09/04/2024 14:37:58 01/26/20 25 text/htm l ROS as noted in the HPI f/u lump the patient was here previously [...] texture or new sympotms ROGELIO BONDS [address] [place], [address], [facility] 01/25/2025 16:11:56 07/13/20 25 text/htm l Care Management - HyperlipidemiaReported by PatientHPIFor control, patient reportsusually well controlled,improving, andat goal. For complications, patient reportsno coronary artery disease,no heart attack,no cardiovascular disease,no pancreatitis, andno stroke. Medicare Annual Wellness VisitReported by PatientSocial/Behavioral HistoryFor diet and nutrition, patient reportshealthy diet. For fracture risk, patient reportsno history of fractures,no recent explained fracture,no sudden unexplained fractures, andno previous musculoskeletal injuries. For physical activity, patient reportsexercises on a regular basis,recent increase in physical activity, andgood physical condition.Mental Status:For depression risk, patient reportsnever feels sad, empty, or tearful,no loss of interest in activities,no significant changes in weight,no sleep disturbances or insomnia,no agitation,no loss of energy,no feelings of worthlessness or guilt,no thoughts of suicide,no history of depression, andno history of mood disorders. For orientation, patient reportsno disorientation to time,no disorientation to date, andno disorientation to place. For concentration and memory, patient reportsno decreased concentrating ability,no memory lapses or loss, anddoes not forget words. For speech/motor difficulties, patient reportsno speech difficulties,no difficulty expressing formulated concepts,no difficulty with fine manipulative tasks,no difficulty writing/copying,no slowed reaction time, anddoes not knock things over when trying to pick them up.Functional AbilityFor hearing, patient reportsno loss of hearing. For vision, patient reportsno vision problems. For activities of daily living, patient reportsable to bathe with limited or no assistance,able to contol urination and bowels,able to dress with limited or no assistance,able to feed self with limited or no assistance,able to get out of chair or bed with limited or no assistance,able to groom with limited or no assistance, andable to toilet with limited or no assistance. For instrumental activities of daily living, patient reportsable to do house work with limited or no assistance,able to grocery shop with limited or no assistance,able to manage medications with limited or no assistance,able to manage money with limited or no assistance,able to prepare meals with limited or no assistance, andable to use the phone with limited or no assistance. For falls risk assessment, patient reportsno frequent falls while walking,no fall in the past year,no fall since last visit, andno dizziness/vertigo. For home safety, patient reportsno unsafe johny hazzards,no unsafe stairs,no unsafe gas appliances,working smoke/co detectors,wears protective head gear for biking/high velocity,use of seatbelts,practicing 'safer sex',no vision or hearing loss while driving,no fire arms,has hand bars in the bathroom/shower, andgood lighting in the home.ROS as noted in the HPI here for mwvrelates no overall issues except for the peripheral nerve diseasestill very active anyway Isaiah Zabala, DO [address] [facility], [place], [address], [facility] 07/13/2025 10:05:06
--- OUTSIDE RECORDS SUMMARY | 2025-09-08 13:13 | XMS_ITS | Encounter Summary ---
Author Organization [facility] Address [address] [facility] [address] [place] [address] Phone Care Team Providers Care College Service Officer Name Role Phone HenokIsaiah coker Jose Luis BOWENS Primary Care Provider [phone] Encounter Details Date Type Department Care Team (Latest Contact Info) Description 07/14/2024 Transcribe Orders [address] [address] Doris Quinn PA [address] [place] [address] [place] [address] Joint pain due to acute Lyme disease [...] Upcoming Encounters Date Type Department Care Team ( Contact Info) Description 11/16/2025 1:00 PM EST Office Visit [facility] Neuromuscular Service [address] [facility], [address]th [place] [address] Megan Francis MD, MPH [address] [facility] [address] [place] [address] [email or web address] documented as of this encounter Results * Lyme Screen with Reflex to Immunoblot, Blood (07/14/2024 10:08 AM EDT) Lyme AB IgG Negative Negative [facility] Lyme AB IgM Negative Negative [facility] Blood 07/14/2024 10:0 8 AM EDT 07/14/2024 10:11 AM EDT us Doris [facility] BLOOD BKR ORDERABLES Fi nal Result [facility] [address] [place] [address] documented in this encounter Visit Diagnoses Diagnosis Joint pain due to acute Lyme disease- Primary documented in this encounter Care Teams College Service Officer Relationship Specialty Start Date End Date Isaiah Sherwood DO [email or web address] PCP - General Internal Medicine 12/11/16 documented as of this encounter Additional Source Comments The information contained in this document represents components of the legal health record. It is not the complete legal health record.[facility]
--- OUTSIDE RECORDS SUMMARY | 2025-09-08 13:13 | XMS_ITS | Encounter Summary ---
Author Organization [facility] Address [address] [address] Phone Care Team Providers Care Sports Apparel Internship Name Role Phone Isaiah Sherwood DO Primary Care Provider [phone] Encounter Details Date Type Department Care Team ([facility] Contact Info) Description 07/25/2020 Transcribe Orders Virtual Department [address] [place] [address] Isaiah Sherwood DO [address] [place] [address] [email or web address] Ganglion, right knee (Primary Dx) Social History [...] Description 11/16/2025 1:00 PM EST Office [place] [facility] [address] [facility], [address]th [place] [address] Megan Francis MD, MPH [address] [facility] [address] [place] [address] [email or web address] documented as of this encounter Visit Diagnoses Diagnosis Ganglion, right knee- Primary documented in this encounter Care Teams Sports Apparel Internship Relationship Specialty Start Date End Date Isaiah Sherwood DO [email or web address] PCP - General Internal Medicine 12/11/16 documented as of this encounter Additional Source Comments The information contained in this document represents components of the legal health record. It is not the complete legal health record.[facility]
--- OUTSIDE RECORDS SUMMARY | 2025-09-08 13:13 | XMS_ITS | Encounter Summary ---
Author Organization [facility] Address [address] [place] [address] [place] [address] Phone Care Team Providers Care Secretary Specialist Name Role Phone Isaiah Sherwood Jose Luis BOWENS Primary Care Provider [phone] Encounter Details Date Type Department Care Team (Late Contact Info) Description 08/13/2024 Procedure Pass [facility] - MRI [address] [facility], [address]th [place] [address] Social History Tobacco Use Types Packs/Day Years [...] PM EST Office Visit [facility] Neuromuscular Service [address] [facility] [place] [address] Megan Francis MD, MPH [address] [facility] [address] [place] [id number] [email or web address] documented as of this encounter Visit Diagnoses Not on filedocumented in this encounter Care Teams Secretary Specialist Relationship Specialty Start Date End Date Isaiah Sherwood DO [email or web address] PCP - General Internal Medicine 12/11/16 documented as of this encounter Additional Source Comments The information contained in this document represents components of the legal health record. It is not the complete legal health record.[facility]
--- OUTSIDE RECORDS SUMMARY | 2025-09-08 13:13 | XMS_ITS | Encounter Summary ---
Author Organization [facility] Address [address] [address] Phone Care Team Providers Care Stove Bottom Worker Name Role Phone Isaiah Sherwood DO Primary Care Provider [phone] Reason for Referral * Outpatient Procedure - Closed Specialty Diagnoses / Procedures Referred By Contac t Referred To Contact Diagnoses Other chest pain Procedures Stress Test Exercise Isaiah Sherwood DO Phone: tel: fax: [email or web address] Referral ID Status Reason Start Date Expiration Date Visits Re quested Visits Authorized [id number] Closed 06/14/2023 1 1 Encounter Details Date Type Department Care Team (Late st Contact Info) Description 06/14/2023 Transcribe Orders Virtual Department [address] [place] [address] Isaiah Sherwood DO [address] [place] [address] Other chest pain (Primary Dx) Social History [...] Description 11/16/2025 1:00 PM EST Office [place] [facility] [place] [address] [place] [address] Megan Francis MD, MPH [address] [facility] [address] [place] [address] [email or web address] documented as of this encounter Results * Stress Test Exercise (06/27/2023 10:44 AM EDT) Max BP Systolic 164 mmHg [facility] Max BP Diastolic 80 mmHg [facility] Max HR 153 BPM [facility] Resting HR 100 BPM [facility] Resting BP Systolic 102 mmHg [facility] Resting BP Diastolic 62 mmHg [facility] Peak METS 12.3 METS [facility] Peak HR 153 BPM [facility] Anatomical Region Laterality Modality Heart Other 06/27/2023 [...] repeat testing with nuclear imaging. Brittany Bautista, CHILD HEALTH ASSOCIATE with Dr Jo. us Isaiah Sherwood DO CV STRESS ORDERABLES Final Resul t documented in this encounter Visit Diagnoses Diagnosis Other chest pain- Primary Other chest pain documented in this encounter Care Teams Stove Bottom Worker Relationship Specialty Start Date End Date Isaiah Sherwood DO [email or web address] PCP - General Internal Medicine 12/11/16 documented as of this encounter Additional Source Comments The information contained in this document represents components of the legal health record. It is not the complete legal health record.[facility]
--- OUTSIDE RECORDS SUMMARY | 2025-09-08 13:13 | XMS_ITS | Encounter Summary ---
Author Organization [facility] Address [address] [facility] [address] [place] [address] Phone Care Team Providers Care Car Attendant Name Role Phone Isaiah Sherwood DO Primary Care Provider [phone] Encounter Details Date Type Department Care Team (Late Contact Info) Description 12/18/2017 Ancillary Orders Virtual Department [address] [place] [address] Isaiah Sherwood DO [address] [facility] [place] [address] [email or web address] Other chest pain Social History Tobacco Use [...] [facility] [address] [facility]th [place] [address] Megan Francis MD, MPH [address] [facility] [address] [place] [address] [email or web address] documented as of this encounter Results * Stress Test Exercise (12/25/2017 10:49 AM EST) [facility] Max BP Systolic 150 mmHg [facility] Max BP Diastolic 60 mmHg [facility] Max HR 179 BPM [facility] Resting HR 111 BPM [facility] Resting BP Systolic 110 mmHg [facility] Resting BP Diastolic 80 mmHg [facility] Peak METS 15.2 METS [facility] Peak HR 179 BPM [facility] Anatomical Region Laterality Modality Heart Other [...] Conclusion - normal stress test. Talon Mccrary SOLAR INSTALLATION FOREMAN with Dr Jarrett us Isaiah Sherwood DO CV STRESS ORDERABLES Final Resul t documented in this encounter Visit Diagnoses Diagnosis Other chest pain Other chest pain documented in this encounter Care Teams Car Attendant Relationship Specialty Start Date End Date Isaiah Sherwood DO PCP - General Internal Medicine 12/11/16 documented as of this encounter Additional Source Comments The information contained in this document represents components of the legal health record. It is not the complete legal health record.[facility]
== END ==
LOC: HO.CARD 10:52
PROVIDERS: PCP Internal Medicine; Visit Provider Internal Medicine
DX: I71.21 Aneurysm of the ascending aorta, without rupture (principal)
CPT/HCPCS: 93306

== ENCOUNTER → 2025-09-08 10:54 | Outpatient (BNV) | payer MEDICARE, OTHER, SELFPAY | PROVIDERS: PCP Internal Medicine; Visit Provider Internal Medicine Cardiovascular Disease | DX: I77.810 Thoracic aortic ectasia (principal) | CPT/HCPCS: 93306 ==